=== PATIENT | female | born 1970 | race Caucasian/White ===

== ENCOUNTER → 2018-05-31 15:42 | Outpatient (CLI) | payer BC, SELFPAY ==
--- NOTE | 2018-05-31 15:46 | MM_ITS ---
MM Dig screening mamm BI w/CAD ORDERING PHYSICIAN : Jameel Talavera PATIENT AGE: 48 years GENDER: Female COMPARISON: January 2016, December 2013 INDICATION: ITS.REASON: screening no hormones no new complaints Family history. Sister with breast cancer age 35 and mother age 40 TECHNIQUE: Standard CC and MLO images were obtained. R2 CAD reviewed. FINDINGS: Moderate dense residual fibroglandular elements bilaterally with no new dominant mass or suspicious calcifications. Prior films are quite helpful and support stable appearance with overall architecture. No new areas of significant concern. I would note that mammography is of decreased sensitivity in breast of this character and density. I see no new areas of significant concern but it may palpable areas arise low threshold for ultrasound of the useful compliment/augment mammography in breast of this character.. With the strong family history this patient may benefit from the slightly more sensitive mammography tomosynthesis in follow-up . IMPRESSION: Fairly dense heterogeneous breast pattern bilaterally. Mammography is of decreased sensitivity in breast of this character but no new areas of concern. Bilateral follow-up in one year recommended. Self breast examination would be encouraged Note comments in text BI-RADS Category: 2 Benign Finding(s) RECOMMENDED FOLLOW-UP: 1YR 1 YEAR FOLLOW-UP (A letter has been sent to the patient regarding results of the study.)
== END ==
PROVIDERS: PCP Nurse Practitioner Family; Visit Provider Nurse Practitioner Family
DX: Z12.31 Encounter for screening mammogram for malignant neoplasm of breast (principal)
CPT/HCPCS: 77067

== ENCOUNTER → 2019-01-17 16:53 | Outpatient (CLI) | payer BC, SELFPAY ==
[2019-01-17 17:10] LABS: Basophils % 0.2 % (0.1-2.0); Eosinophils % 0.3 % (0.1-12.0); Hematocrit 40.1 % (37.0-47.0); Hemoglobin 13.6 g/dL (12.2-16.2); Lymphocytes % 10.3 % (10-50); Mean Corpuscular HGB Conc 33.8 g/dL (31.8-35.4); Mean Corpuscular Hemoglobin 28.7 pg (27.0-31.2); Mean Corpuscular Volume 85.1 fl (81-99); Mean Platelet Volume 7.7 fl (7.4-10.4); Monocytes # 0.5 K/mm3 (0.1-1.0); Monocytes % 4.9 % (1.7-9.3); Neutrophils % 84.4 % (37.0-80.0); Platelet Count 228 K/mm3 (142-424); Red Blood Count 4.72 M/mm3 (4.20-5.40); Red Cell Distribution Width 13.2 % (11.5-17.5); White Blood Count 9.4 K/mm3 (4.8-10.8)
--- NOTE | 2019-01-17 17:25 | XR_ITS ---
XR chest 2V HISTORY: Shortness of air ITS.REASON: soa ORDERING PHYSICIAN: Jameel Talavera APRN PATIENT AGE: 48 years COMPARISON: None FINDINGS: The cardiomediastinal silhouette and pulmonary vascularity are within normal limits. The lungs are clear without infiltrates, suspicious nodules, or pleural effusions. No acute bony abnormalities. IMPRESSION: Negative chest, no acute finding
[2019-01-17 17:59] LABS: Erythrocyte Sedimentation Rate 53 mm/hr (0-20)
[2019-01-17 18:32] LABS: Alanine Aminotransferase 30 U/L (12-78); Albumin/Globulin Ratio 1.3 (1.1-1.8); Alkaline Phosphatase 120 U/L (46-116); Anion Gap 16.5 mEq/L (5-15); Aspartate Amino Transferase 20 U/L (15-37); Bilirubin,Total 1.2 mg/dL (0.2-1.0); Blood Urea Nitrogen 13 mg/dL (7-18); C-Reactive Protein 1.4 mg/L (0.0-0.9); Calcium 9.8 mg/dL (8.5-10.1); Carbon Dioxide 25 mmol/L (21.0-32.0); Chloride 104 mmol/L (98-107); Creatinine,Serum 0.81 mg/dL (0.55-1.02); Estimated Glomerular Filt Rate 75 ml/min (>60); GFR (African American) 91 ML/MIN (>60); Globulin 3.1 gm/dl (1.3-3.2); Glucose 93 mg/dL (74-106); Potassium 4.5 mmoL/L (3.5-5.1); Sodium 141 mmol/L (136-145); T4 (Thyroxine) 8.5 ug/dl (4.7-13.3); Thyroid Stimulating Hormone 2.01 uIU/ml (0.358-3.740); Total Protein,Serum 7.1 gm/dL (6.4-8.2)
[2019-01-18 15:23] LABS: Creatine Kinase 128 U/L (26-192); Creatine Kinase MB 1.3 ng/ml (0.0-3.6); Troponin I < 0.02 ng/ml (0.00-0.06)
== END ==
PROVIDERS: PCP Emergency Medicine; Visit Provider Nurse Practitioner Family
DX: R42 Dizziness and giddiness (principal); R51 Headache; R06.02 Shortness of breath
CPT/HCPCS: 36415; 71046; 80053; 82550; 82553; 84436; 84443; 84484; 85025; 85651; 86140

== ENCOUNTER → 2019-01-24 10:40 | Outpatient (CLI) | payer BC, SELFPAY ==
--- NOTE | 2019-01-24 10:43 | US_ITS ---
US thyroid HISTORY: ITS.REASON: enlarged thyroid ORDERING PHYSICIAN: Jameel Talavera APRN PATIENT AGE: 48 years Comparison: None FINDINGS: AP diameter of the isthmus is 1.5 mm. Right lobe measures 1.1 x 3.3 x 1.0 cm. Left lobe measures 1.2 x 3.4 x 0.9 cm. The echogenic appearance of the thyroid gland appears normal. Upper pole left thyroid lobe shows a round smoothly marginated primarily anechoic lesion measuring 5.5 x 3.5 x 5.1 mm. Within this lesion there is a central punctate nonshadowing echogenic focus. There are no other nodules identified. Impression: No enlargement of the thyroid gland. Left thyroid lobe solitary small lesion as discussed above, TI-rad category 1 benign.
== END ==
PROVIDERS: PCP Emergency Medicine; Visit Provider Nurse Practitioner Family
DX: E04.9 Nontoxic goiter, unspecified (principal)
CPT/HCPCS: 76536

== ENCOUNTER → 2019-02-06 13:17 | Outpatient (CLI) | payer BC, SELFPAY ==
--- NOTE | 2019-02-06 13:19 | CT_ITS ---
CT head/brain wo con HISTORY: Lightheaded, dizziness, nausea ITS.REASON: lighthead ORDERING PHYSICIAN: Jameel Talavera APRN PATIENT AGE: 48 years COMPARISON: None TECHNIQUE: Axial images were obtained. Brain and bone windows reviewed. All CT scans at the facility use one or more dose reduction, viz: automated exposure control, ma/kV adjustment per patient size (including targeted exams where dose is matched to indication, i.e. head), or iterative reconstruction technique. FINDINGS: No midline shift, mass effect, intracranial hemorrhage, hydrocephalus, or extra-axial fluid collection is evident. The calvarium has an unremarkable appearance. No mastoid effusion. No sinus air-fluid levels.. IMPRESSION: Negative CT head without contrast. No acute finding
== END ==
PROVIDERS: PCP Emergency Medicine; Visit Provider Nurse Practitioner Family
DX: R42 Dizziness and giddiness (principal); R51 Headache
CPT/HCPCS: 70450

== ENCOUNTER → 2019-02-27 10:42 | Outpatient (CLI) | payer BC, SELFPAY ==
[2019-02-28 08:13] LABS: Thyroid Peroxidase Antibodies 12 IU/mL (0-34)
[2019-02-28 12:31] LABS: Thyroid Stimulating Hormone 1.72 uIU/ml (0.358-3.740)
[2019-02-28 14:22] LABS: Triiodothyronine (T3) Free 3.3 pg/mL (2.0-4.4)
== END ==
PROVIDERS: Visit Provider Internal Medicine Endocrinology, Diabetes & Metabolism
DX: E04.1 Nontoxic single thyroid nodule (principal); R94.6 Abnormal results of thyroid function studies
CPT/HCPCS: 36415; 84436; 84439; 84443; 84480; 84481; 86376

== ENCOUNTER → 2019-05-02 06:14 | Outpatient (CLI) | payer BC, SELFPAY ==
--- NOTE | 2019-05-02 06:16 | CA_ITS ---
APPROVED REPORT Curber: SAMARA Laterality: Bilateral Study Quality: Excellent Indications: due f/u ANATOLIY Doppler Spectral Velocity Analysis ECA (R) 94.80/17.90 cm/s ECA (L) 74.80/15.00 cm/s dICA (R) 112.70/48.20 cm/s dICA (L) 118.20/46.40 cm/s Walker (R) 100.20/36.60 cm/s Walker (L) 116.00/45.60 cm/s pICA (R) 129.10/33.70 cm/s pICA (L) 75.90/31.50 cm/s Vert (R) 51.20/14.10 cm/s Vert (L) 53.10/14.20 cm/s ICA/CCA 1.39 ICA/CCA 1.27 Findings Duplex evaluation demonstrates stenosis of the right proximal internal carotid artery <20% with PSV <140 cm/sec, EDV <100 cm/sec, and IC/CC Ratio <4.0.Duplex evaluation demonstrates stenosis of the left proximal internal carotid artery in the range of 20-49%(LOWER END OF SCALE) with PSV <140 cm/sec, EDV <100 cm/sec, and IC/CC Ratio <4.0.Antegrade flow seen bilateral vertebral arteries. No significant change from prior exam of 06/02/2016 Conclusion Duplex evaluation demonstrates stenosis of the right proximal internal carotid artery <20% with PSV <140 cm/sec, EDV <100 cm/sec, and IC/CC Ratio <4.0.Duplex evaluation demonstrates stenosis of the left proximal internal carotid artery in the range of 20-49%(LOWER END OF SCALE) with PSV <140 cm/sec, EDV <100 cm/sec, and IC/CC Ratio <4.0.Antegrade flow seen bilateral vertebral arteries. No significant change from prior exam of 06/02/2016 Electronically signed by : Ronnell Moreno MD 05/02/2019 18:08:54
--- NOTE | 2019-05-02 06:19 | CA_ITS ---
APPROVED REPORT Exam: Exercise Treadmill Technologist: Vera Figueroa, Ht: 5 ft 9 in Wt: 143 lbs BSA: 1.79 m2 HR: 55 bpm BP: 142/71 mmHg Rhythm: NSR Medical History Medical History: Hyperlipidemia Medications: Asa,,,,, Atorvastatin,,,,, Allergies: NKA Cardiac Risk Factors: Hyperlipidemia Stress Test Details Test: Frederick HR Resting HR: 80 bpm Max Heart Rate (APMHR): 169 bpm Max HR Achieved: 160 bpm Target HR (85% APMHR): 143 bpm % of APMHR: 94 Recovery HR: 111 bpm BP Resting BP: 142.0/71.0 mmHg Max BP: 178.0/74.0 mmHg Recovery BP: 161.0/60.0 mmHg ECG Resting ECG: NSR Clinical Reason for Termination: Dyspnea Exercise duration: 10:01 min Highest Stage Achieved: Exercise capacity: 12.8 METs Stress ECG Conclusion EXERCISED 10:00 MINUTES WITH MAX HEART RATE 160 BPM WHICH IS 111% OF PM FOR AGE. 12.8 METS. TEST STOPPED DUE TO SOA. NO CHEST PAIN. POSITIVE FOR SOA. NO ARRHYTHMIAS/ECTOPY. <1.[address] SEGMENT CHANGES. NEGATIVE TEST Test Summary Stage 4 . . . . . . . . REST . . . . . . . Sitting REST 07:44 0.0 0.0 80 . 142/ 71 . . Stage 1 01:00 10.0 1.7 91 . . . . Stage 1 02:00 10.0 1.7 92 . . . . Stage 1 03:00 10.0 1.7 104 . 148/ 72 . . Stage 2 01:00 12.0 2.5 94 . . . . Stage 2 02:00 12.0 2.5 98 . . . . Stage 2 03:00 12.0 2.5 107 . 154/ 72 . . Stage 3 01:00 14.0 3.4 124 . . . . Stage 3 02:00 14.0 3.4 129 . . . . Stage 3 03:00 14.0 3.4 140 . 178/ 74 . . Stage 4 . . . . . . . Cardiolite injected Stage 4 01:00 16.0 4.2 159 . . . . Stage 4 01:01 16.0 4.2 159 . . . Stop exercise at 10:01 RECOVERY 01:00 0.0 0.0 135 . . . . RECOVERY 02:00 0.0 0.0 111 . . . . RECOVERY 03:00 0.0 0.0 92 . 161/ 60 . . RECOVERY 04:00 0.0 0.0 87 . 161/ 60 . . RECOVERY 05:00 0.0 0.0 79 . 161/ 60 . . RECOVERY 06:00 0.0 0.0 86 . 108/ 56 . . RECOVERY 06:19 0.0 0.0 83 . 108/ 56 . . Electronically signed by : Oren Smiley, 05/02/2019 14:38:42
--- NOTE | 2019-05-02 06:19 | NM_ITS ---
APPROVED REPORT Exam: Nuclear Stress Test Indication: C.Joselyn., GLADYS, ZEINA COPE Patient Location: Outpatient Stress Tech: Kari Figueroa [place] Tech:Gege GipsonDARIA RT(R)(N) Ht: 5 ft 9 in Wt: 143 lbs Bra Size: 36dd HR: 55 bpm BP: 142/71 mmHg BSA: 1.79 m2 BMI: 21.1 History: Mariia.Joselyn., GLADYS, ANATOLIY, ZEINA Procedure: Patient exercised on Frederick protocol 10:00 minutes and sec, resting heart rate 55 bpm, resting blood pressure 142/71 mmHg, with exercise maximum heart rate achived was 136 bpm which is % of the maximum predicted heart rate and blood pressure was 178/74 mmHg. Patient denied any complaint of chest pain. Cardiac Stress and Resting SPECT Images: Cardiac Stress and Resting SPECT images were obtained using technetium 99m Myoview 31.0 mCi stress and 10.93 mCi at rest. EF is normal at 65% with no wall motion abnormalities There is decrease activity in the kenyetta septal region on the stress images which somewhat improves on the rest images suggesting ischemic changes. No fixed defects Conclusion: EF is normal at 65% with no wall motion abnormalities There is decrease activity in the kenyetta septal region on the stress images which somewhat improves on the rest images suggesting ischemic changes. underlying breast attenuation artifact is also a possibility No fixed defects Electronically signed by : Ronnell Moreno MD 05/02/2019 17:47:14
--- NOTE | 2019-05-02 09:08 | HMH.ITSHM ---
Current Home Medications as stated by this patient Sav Sanchez or sales representative advertising. [] atorvastatin asa
[2019-05-02 10:50] LABS: Basophils % 0.4 % (0.1-2.0); Hemoglobin 12.4 g/dL (12.2-16.2); Lymphocytes # 1.3 K/mm3 (0.7-4.5); Lymphocytes % 31.9 % (10-50); Mean Corpuscular HGB Conc 32.8 g/dL (31.8-35.4); Mean Corpuscular Hemoglobin 31.1 pg (27.0-31.2); Mean Corpuscular Volume 94.9 fl (81-99); Mean Platelet Volume 9.1 fl (7.4-10.4); Monocytes # 0.2 K/mm3 (0.1-1.0); Monocytes % 5.1 % (1.7-9.3); Neutrophils # 2.5 K/mm3 (1.8-7.8); Neutrophils % 61.6 % (37.0-80.0); Platelet Count 178 K/mm3 (142-424); Red Cell Distribution Width 13.1 % (11.5-17.5)
[2019-05-02 11:38] LABS: Erythrocyte Sedimentation Rate 40 mm/hr (0-30)
[2019-05-02 11:46] LABS: Alanine Aminotransferase 34 U/L (12-78); Albumin Level 3.4 gm/dL (3.4-5.0); Albumin/Globulin Ratio 1.4 (1.1-1.8); Alkaline Phosphatase 95 U/L (46-116); Aspartate Amino Transferase 29 U/L (15-37); Bilirubin,Total 0.6 mg/dL (0.2-1.0); Blood Urea Nitrogen 9 mg/dL (7-18); C-Reactive Protein 0.3 mg/dL (0.0-0.9); Calcium 8.8 mg/dL (8.5-10.1); Carbon Dioxide 29 mmol/L (21.0-32.0); Chloride 107 mmol/L (98-107); Creatinine,Serum 0.56 mg/dL (0.55-1.02); Estimated Glomerular Filt Rate 114 ml/min (>60); GFR (African American) 138 ML/MIN (>60); Globulin 2.5 gm/dl (1.3-3.2); Glucose 89 mg/dL (74-106); Sodium 140 mmol/L (136-145); Total Protein,Serum 5.9 gm/dL (6.4-8.2); Uric Acid 3.2 mg/dL (2.6-7.2)
[2019-05-03 18:51] LABS: RA Latex Turbid. 11.2 IU/mL (0.0-13.9)
[2019-05-03 18:52] LABS: Antinuclear Antibodies, IFA Negative (.)
== END ==
PROVIDERS: Nurse Practitioner Family; PCP Emergency Medicine; Visit Provider Urology
DX: R07.9 Chest pain, unspecified (principal); R06.02 Shortness of breath; I65.23 Occlusion and stenosis of bilateral carotid arteries; R94.31 Abnormal electrocardiogram [ECG] [EKG]
CPT/HCPCS: 36415; 78452; 80053; 84550; 85025; 85651; 86038; 86140; 86431; 93017; 93306; 93880; A9502

== ENCOUNTER → 2019-05-02 10:28 | Outpatient (CLI) | payer BC, SELFPAY | PROVIDERS: Visit Provider Nurse Practitioner Family | DX: R07.9 Chest pain, unspecified (principal); R06.09 Other forms of dyspnea; R94.31 Abnormal electrocardiogram [ECG] [EKG] | CPT/HCPCS: 36415; 80053; 84550; 85025; 85651; 86038; 86140; 86431 ==

== ENCOUNTER → 2019-06-12 07:37 | Outpatient (CLI) | payer BC, SELFPAY ==
[2019-06-12 07:39] LABS: MANUAL DIFFERENTIAL MANUAL DIFFERENTIAL (MANUAL DIFF)
[2019-06-12 07:55] LABS: Basophils % 0.2 % (0.1-2.0); Eosinophils # 0.1 K/mm3 (0.0-0.4); Eosinophils % 1.2 % (0.1-12.0); Hematocrit 41.1 % (37.0-47.0); Hemoglobin 13.2 g/dL (12.2-16.2); Lymphocytes # 1.4 K/mm3 (0.7-4.5); Lymphocytes % 26.2 % (10-50); Mean Corpuscular HGB Conc 32.2 g/dL (31.8-35.4); Mean Corpuscular Hemoglobin 30.6 pg (27.0-31.2); Monocytes # 0.3 K/mm3 (0.1-1.0); Monocytes % 5.4 % (1.7-9.3); Neutrophils # 3.5 K/mm3 (1.8-7.8); Platelet Count 189 K/mm3 (142-424); Red Blood Count 4.32 M/mm3 (4.20-5.40); Red Cell Distribution Width 13.6 % (11.5-17.5); White Blood Count 5.3 K/mm3 (4.8-10.8)
[2019-06-12 09:16] LABS: Lymphocytes % 24 % (10-50); Monocytes % 10 % (2-9); Neutrophils % 65 % (42-76); Platelet Estimate Slight Decrease; RBC Morphology Normal; Total Cells Counted 100
[2019-06-12 11:11] LABS: Erythrocyte Sedimentation Rate 20 mm/hr (0-30)
== END ==
PROVIDERS: Visit Provider Nurse Practitioner Family
DX: D72.819 Decreased white blood cell count, unspecified (principal); R70.0 Elevated erythrocyte sedimentation rate
CPT/HCPCS: 36415; 85007; 85014; 85018; 85048; 85049; 85651

== ENCOUNTER → 2019-07-26 09:08 | Outpatient (CLI) | payer BC, SELFPAY ==
[2019-07-26 10:27] LABS: Glucose,Fasting 86 mg/dL (60-105)
[2019-07-26 10:46] LABS: Glucose 1 Hour 62 mg/dL (74-106)
[2019-07-26 10:48] LABS: Hemoglobin A1C 5.4 % (0.0-7.0)
[2019-07-26 12:57] LABS: Glucose 2 Hour 58 mg/dL (74-106); Glucose 3 Hour 53 mg/dL (74-106)
== END ==
PROVIDERS: Visit Provider Nurse Practitioner Family
DX: E16.2 Hypoglycemia, unspecified (principal)
CPT/HCPCS: 36415; 82951; 83036

== ENCOUNTER → 2019-08-05 16:15 | Outpatient (CLI) | payer BC, SELFPAY ==
--- NOTE | 2019-08-05 16:15 | MM_ITS ---
PROCEDURE: MM DIG SCREENING MAMM BI W/CAD CLINICAL INDICATION: screening There is a history of breast cancer patient's mother diagnosed at age 40 and the patient's sister diagnosed at age 35. COMPARISON: [facility] DIG MAMM-SCREEN ANTONINO from 02/18/2016 [facility] DIG MAMM-SCREEN [facility]INO W/CAD from 03/26/2017 [facility] MM Dig screening mamm BI w/CAD from 05/31/2018 TECHNIQUE: Standard CC and MLO images and 3D Tomosynthesis was obtained. R2 CAD reviewed. FINDINGS: Again noted is a diffusely dense and heterogenic parenchymal pattern lessening the sensitivity of mammography. The findings are fairly symmetrical bilaterally. Tomosynthesis images are most helpful and this type of breast parenchymal pattern confirming the rather dense and heterogenic fibroglandular densities. There are few scattered benign-appearing microcalcifications in each breast. Angel Luis images confirm no new or suspicious lesion in either breast and no suspicious microcalcifications. IMPRESSION: Stable diffusely dense parenchymal pattern with no suspicious lesions seen BI-RAD Category: 2 Benign Finding(s) FOLLOW-UP: 1YR 1 Year Follow-up (A letter has been sent to the patient regarding results of the study.) Dictated by: Dr. Kem Montelongo MD 08/07/2019 10:[address] Kem Montelongo MD in [place] 08/07/2019 10:05
== END ==
PROVIDERS: PCP Nurse Practitioner Family; Visit Provider Nurse Practitioner Family
DX: Z12.31 Encounter for screening mammogram for malignant neoplasm of breast (principal)
CPT/HCPCS: 77063; 77067

== ENCOUNTER → 2019-08-20 09:16 | Outpatient (CLI) | payer BC, SELFPAY ==
[2019-08-20 11:46] LABS: Free T4 (Free Thyroxine) 0.78 ng/dl (0.78-2.19)
[2019-08-20 12:00] LABS: Thyroid Stimulating Hormone 2.32 uIU/mL (0.465-4.68)
[2019-08-22 10:34] LABS: Estradiol 54.6 pg/mL (.); FSH 46.3 mIU/mL (.); LH 65.4 mIU/mL (.)
[2019-08-22 10:35] LABS: Triiodothyronine (T3) Free 2.7 pg/mL (2.0-4.4)
== END ==
PROVIDERS: Internal Medicine Endocrinology, Diabetes & Metabolism; Visit Provider Nurse Practitioner Obstetrics & Gynecology
DX: N95.1 Menopausal and female climacteric states (principal); E04.1 Nontoxic single thyroid nodule; R94.6 Abnormal results of thyroid function studies
CPT/HCPCS: 36415; 82670; 83001; 83002; 84439; 84443; 84481

== ENCOUNTER → 2019-11-25 10:53 | Outpatient (CLI) | payer BC, SELFPAY ==
--- NOTE | 2019-11-25 10:54 | CT_ITS ---
PROCEDURE: CT SINUS WO CON CLINICAL HISTORY: maxillary sinusitits Recurring infection, COMPARISON: No exams were available for comparison TECHNIQUE: Axial images obtained with sagittal and coronal reformats. All CT scans at the facility use one or more dose reduction, viz: automated exposure control, ma/kV adjustment per patient size (including targeted exams where dose is matched to indication, i.e. head), or iterative reconstruction technique. FINDINGS: No air-fluid levels are evident within the sinuses. No significant mucosal. The mastoid sinuses an appearance. The middle ears aerated. There is leftward nasal septal deviation anteriorly. The ostiomeatal complexes are patent. TMJs have an unremarkable. Orbits are unremarkable. IMPRESSION: Negative CT paranasal sinuses. Mild leftward nasal septal deviation Dictated by: Ronnell Moreno MD 11/26/2019 13:23 Electronically signed by Ronnell Moreno MD in [place] 11/26/2019 13:23
== END ==
PROVIDERS: PCP Nurse Practitioner Family; Visit Provider Otolaryngology
DX: J01.01 Acute recurrent maxillary sinusitis (principal); J34.2 Deviated nasal septum
CPT/HCPCS: 70486

== ENCOUNTER → 2021-01-14 11:41 | Outpatient (CLI) | payer BC, SELFPAY ==
--- NOTE | 2021-01-14 11:45 | XR_ITS ---
PROCEDURE: XR HIP RT 2-3V W/PELVIS CLINICAL INDICATION: pain Right hip pain COMPARISON: CR PELAP PELVIS AP ONLY from 09/08/2013 FINDINGS: No fracture or dislocation is evident. No significant degenerative change. No lytic or blastic change. Unremarkable soft tissues. IMPRESSION: No acute findings. Dictated by: Ronnell Moreno MD 01/14/2021 11:59 Ronnell Moreno MD in [place] 01/14/2021 11:59
== END ==
PROVIDERS: PCP Nurse Practitioner Family; Visit Provider Nurse Practitioner Family
DX: M25.551 Pain in right hip (principal)
CPT/HCPCS: 73502

== ENCOUNTER → 2021-02-15 19:37 | Outpatient (CLI) | payer BC, SELFPAY ==
[2021-02-15 21:27] LABS: Coronavirus 19, PCR Not Detected (NotDetected); Influenza A, PCR Not Detected (NotDetected); Influenza B, PCR Not Detected (NotDetected)
== END ==
PROVIDERS: PCP Nurse Practitioner Family; Visit Provider Nurse Practitioner
DX: Z20.822 Contact with and (suspected) exposure to COVID-19 (principal)
CPT/HCPCS: U0003

== ENCOUNTER → 2021-02-20 11:47 | Outpatient (CLI) | payer BC, SELFPAY ==
--- NOTE | 2021-02-20 17:06 | PC.NURSE ---
PATIENT NOTIFIED OF POSITIVE COVID TEST AT THIS TIME
== END ==
PROVIDERS: PCP Nurse Practitioner Family; Visit Provider Nurse Practitioner Family
DX: Z20.822 Contact with and (suspected) exposure to COVID-19 (principal)
CPT/HCPCS: U0003

== ENCOUNTER → 2021-07-13 14:51 | Outpatient (CLI) | payer BC, SELFPAY ==
[2021-07-13 14:53] LABS: MANUAL DIFFERENTIAL MANUAL DIFFERENTIAL (MANUAL DIFF)
[2021-07-13 15:18] LABS: Basophils # 0.1 K/mm3 (0-0.2); Basophils % 2.9 % (0.1-2.0); Eosinophils % 0.2 % (0.1-12.0); Hematocrit 45.3 % (37.0-47.0); Hemoglobin 15.3 g/dL (12.2-16.2); Lymphocytes # 0.4 K/mm3 (0.7-4.5); Lymphocytes % 10.6 % (10-50); Mean Corpuscular HGB Conc 33.7 g/dL (31.8-35.4); Mean Corpuscular Hemoglobin 31.8 pg (27.0-31.2); Mean Corpuscular Volume 94.2 fl (81-99); Mean Platelet Volume 7.9 fl (7.4-10.4); Monocytes # 0.2 K/mm3 (0.1-1.0); Monocytes % 5.3 % (1.7-9.3); Neutrophils # 2.9 K/mm3 (1.8-7.8); Neutrophils % 81.1 % (37.0-80.0); Platelet Count 140 K/mm3 (142-424); Red Blood Count 4.81 M/mm3 (4.20-5.40); Red Cell Distribution Width 13.1 % (11.5-17.5); White Blood Count 3.5 K/mm3 (4.8-10.8)
[2021-07-13 15:37] LABS: Lymphocytes % 16 % (10-50); Monocytes % 8 % (2-9); Neutrophils % 76 % (42-76); Platelet Estimate Normal; RBC Morphology Normal; Total Cells Counted 100
[2021-07-13 15:43] LABS: Erythrocyte Sedimentation Rate 15 mm/hr (0-30)
[2021-07-13 16:03] LABS: Alanine Aminotransferase 31 U/L (12-78); Albumin Level 4.3 g/dl (3.5-5.0); Albumin/Globulin Ratio 1.9 (1.1-1.8); Alkaline Phosphatase 103 U/L (38-126); Anion Gap 10.2 mEq/L (5-15); Aspartate Amino Transferase 47 U/L (14-36); Bilirubin,Total 0.7 mg/dl (0.2-1.3); Blood Urea Nitrogen 12 mg/dl (7-17); Calcium 8.8 mg/dl (8.4-10.2); Carbon Dioxide 27 mmol/L (22.0-30.0); Chloride 100 mmol/L (98-107); Estimated Glomerular Filt Rate 88 ml/min (>60); GFR (African American) 106 ML/MIN (>60); Globulin 2.3 g/dL (1.3-3.2); Glucose 102 mg/dl (74-100); Potassium 4.2 mmoL/L (3.5-5.1); Sodium 133 mmol/L (136-145); Total Protein,Serum 6.6 g/dl (6.3-8.2)
[2021-07-13 16:20] LABS: Free T4 (Free Thyroxine) 0.52 ng/dl (0.78-2.19)
[2021-07-13 16:33] LABS: Thyroid Stimulating Hormone 1.03 uIU/mL (0.465-4.68)
[2021-07-15 15:06] LABS: Anti-Centromere B Antibodies <0.2 AI (0.0-0.9); Anti-DNA (DS) Ab Qn 1 IU/mL (0-9); Anti-Jo-1 <0.2 AI (0.0-0.9); Anti-Smith Antibody <0.2 AI (0.0-0.9); Antichromatin Antibodies <0.2 AI (0.0-0.9); Antiscleroderma-70 Antibodies <0.2 AI (0.0-0.9); RNP Antibodies <0.2 AI (0.0-0.9); Sjogren's Anti-SS-A <0.2 AI (0.0-0.9); Sjogren's Anti-SS-B <0.2 AI (0.0-0.9)
== END ==
PROVIDERS: PCP Nurse Practitioner Family; Visit Provider Otolaryngology
DX: E04.1 Nontoxic single thyroid nodule (principal); H92.02 Otalgia, left ear
CPT/HCPCS: 36415; 80053; 84439; 84443; 85007; 85014; 85018; 85048; 85049; 85651; 86225; 86235

== ENCOUNTER → 2021-07-22 10:53 | Outpatient (CLI) | payer BC, SELFPAY ==
--- NOTE | 2021-07-22 10:54 | US_ITS ---
FINAL REPORT CLINICAL HISTORY: hx nodule FINDINGS: Sonographic images of the thyroid were obtained. The right lobe of the thyroid measures 0.9 x 3.0 x 1.7 cm. Left lobe of the thyroid measures 0.8 x 2.8 x 0.9 cm. There is a 2 mm cystic nodule in the upper pole of the right thyroid consistent with TI-RADS Category 1. No other mass or nodule is identified. IMPRESSION: Right thyroid lobe nodule consistent with TI-RADS Category 1. Reviewed, Interpreted and Dictated by Gabriel Bridges III, MD Transcribed by Sarina Vanegas Authenticated by Gabriel Bridges III, MD on 07/22/2021 12:32:35 PM [facility]
== END ==
PROVIDERS: PCP Nurse Practitioner Family; Visit Provider Otolaryngology
DX: E04.1 Nontoxic single thyroid nodule (principal); H92.02 Otalgia, left ear
CPT/HCPCS: 76536

== ENCOUNTER → 2021-11-03 08:00 | Outpatient (CLI) | payer BC, SELFPAY ==
--- NOTE | 2021-11-03 08:04 | XR_ITS ---
FINAL REPORT CLINICAL HISTORY: BACK PAIN THAT SHOOTS DOWN RIGHT LEG FINDINGS: LUMBAR SPINE Three views were obtained. There is no acute fracture. There is no malalignment. There is mild rightward curvature. There is [id number] degenerative change. There is disc space narrowing at L4-L5 with osteophytes. There is facet arthropathy. There are mild vascular calcifications. IMPRESSION: Mild to moderate degenerative change. Reviewed, Interpreted and Dictated by Gabriel Bridges III, MD Transcribed by Noah Olivia Authenticated by Gabriel Bridges III, MD on 11/03/2021 09:04:[address] [facility]
== END ==
PROVIDERS: PCP Nurse Practitioner Family; Visit Provider Nurse Practitioner Family
DX: M54.50 Low back pain, unspecified (principal)
CPT/HCPCS: 72100

== ENCOUNTER → 2021-11-09 08:10 | Outpatient (CLI) | payer BC, SELFPAY ==
--- NOTE | 2021-11-09 08:10 | MM_ITS ---
PROCEDURE INFORMATION: Exam: MG Bilateral Screening 3D Mammography Exam date and time: 11/09/2021 8:18 AM Age: 51 years old Clinical indication: Screening mammogram TECHNIQUE: Imaging protocol: Bilateral Screening tomosynthesis and 2D mammography including computer-aided detection (CAD) when performed. COMPARISON: 1. MG MM DIG SCREENING MAMM BI W/CAD 08/05/2019 4:38 PM 2. MG [facility] MM Dig screening mamm BI w/CAD 05/31/2018 3:55 PM 3. MG [facility] DIG MAMM-SCREEN ANTONINO W/CAD 03/26/2017 8:51 AM 4. MG [facility] DIG MAMM-SCREEN ANTONINO 02/18/2016 8:25 AM FINDINGS: MAMMOGRAPHY: Breast composition: The breast is heterogeneously dense, which may obscure small masses. Mass: None. Architectural distortion: No new or suspicious architectural distortion. Calcifications: No new or suspicious calcifications are present Asymmetric density: No new or suspicious asymmetric density is present Skin thickening: None. Axillary adenopathy: None. IMPRESSION: No mammographic evidence of malignancy. Recommend annual screening mammography unless otherwise clinically indicated. ASSESSMENT: BI-RADS category 1: Negative
== END ==
PROVIDERS: PCP Nurse Practitioner Family; Visit Provider Nurse Practitioner Family
DX: Z12.31 Encounter for screening mammogram for malignant neoplasm of breast (principal)
CPT/HCPCS: 77063; 77067

== ENCOUNTER → 2022-03-14 14:59 | Outpatient (CLI) | payer BC, SELFPAY ==
--- NOTE | 2022-03-14 15:01 | CA_ITS ---
APPROVED REPORT EXAM: Comprehensive 2D, Doppler, and color-flow Echocardiogram Office Employee: Gege Olvera CRT Ht: 5 ft 9 in Wt: 170lbs BSA: 1.93 BP: 155/71 mmHg Indications: Chest Pain, Shortness of Breath, Fatigue, Hyperlipidemia, bradycardia 2D Dimensions LVOT 1.88 cm (M/F) 1.5-2.5 LA Volume 24.50 mL LA Volume Index 12.70 mL/m2 (M/F) 16-34 M-Mode Dimensions RVDd 2.85 cm (0.9-2.6) LA Diam 2.74 cm (1.9-4.0) LVDd 4.29 cm (3.5-5.7) Ao Diam 3.12 cm (2.0-3.7) LVDs 2.69 cm (3.5-5.7) IVSd 0.75 cm (0.6-1.1) PWd 0.66 cm (0.6-1.1) EF (Teich) 67.60% FS 37.30% EDV (Teich) 82.60 mL TAPSE 2.65 (<1.7) ESV (Teich) 26.80 mL LV Diastology E Decel Time 273.00 (160-240 msec) E/A Ratio 1.13 MED E' 11.90 (< 7 cm/sec) MED A' 10.20 cm/s E'/MED E' Ratio 7.94 (>14) LAT E' 13.50 (<10 cm/sec) LAT A' 8.50 cm/s E/LAT E' Ratio 7.00 (>14) Aortic Valve AO Peak GR. 10.80 mmHg Mitral Valve MV A Velocity 84.00 (40-130 cm/s) E/A Ratio 1.13 MV Decel. Time 273.00 (160-240 ms) Tricuspid Valve TR P. Velocity 468.00 cm/s RAP Estimate 10.00 mmHg RVSP 97.60 mmHg Left Ventricle Left atrium is normal size, left ventricle is normal size, there is no concentric left ventricular hypertrophy, estimated ejection fraction 55% with no regional wall motion abnormality, diastolic parameters are within normal range. Right Ventricle Right atrium and right ventricle are normal size and contractility. Aortic Valve Aortic valve is minimally thickened and fibrosed there is no aortic stenosis or aortic insufficiency. Mitral Valve Mitral valve is grossly normal, there is trace mitral regurgitation. Tricuspid Valve Tricuspid valve is grossly normal, there is trace tricuspid regurgitation, calculated right ventricular systolic pressure 26 mmHg. Pulmonic Valve Pulmonic valve is poorly visualized. Great Vessels Aortic root is normal size. Inferior vena cava is normal size with normal inspiratory collapse. Pericardium No significant pericardial effusion noted. Conclusion 1. Normal left ventricular size preserved left ventricular systolic function, estimated ejection fraction 55% with no regional wall motion abnormality, diastolic parameters are within normal range. 2. Trace mitral and tricuspid regurgitation, calculated right ventricular systolic pressure 26 mmHg. 3. No significant pericardial effusion. 4. Inferior vena cava is normal size with normal inspiratory collapse. Electronically signed by : Cb Terrazas MD 03/15/2022 05:13:06
== END ==
PROVIDERS: PCP Nurse Practitioner Family; Visit Provider Physician Assistant
DX: R06.09 Other forms of dyspnea (principal); R42 Dizziness and giddiness; R00.1 Bradycardia, unspecified; E78.2 Mixed hyperlipidemia; I65.23 Occlusion and stenosis of bilateral carotid arteries; K21.9 Gastro-esophageal reflux disease without esophagitis
CPT/HCPCS: 93306

== ENCOUNTER → 2022-03-20 10:24 | Outpatient (CLI) | payer BC, SELFPAY | PROVIDERS: PCP Nurse Practitioner Family; Visit Provider Physician Assistant | DX: R42 Dizziness and giddiness (principal); R00.1 Bradycardia, unspecified | CPT/HCPCS: 93270 ==

== ENCOUNTER → 2022-05-02 12:37 | Outpatient (CLI) | payer BC, SELFPAY ==
[2022-05-02 13:25] VITALS: PULSE 80; PULSE 88
== END ==
PROVIDERS: PCP Nurse Practitioner Family; Visit Provider Internal Medicine Pulmonary Disease
DX: R06.09 Other forms of dyspnea (principal)
CPT/HCPCS: 94060; 94618; 94640; 94726; 94729

== ENCOUNTER → 2022-06-29 12:56 | Outpatient (CLI) | payer BC, SELFPAY ==
--- NOTE | 2022-06-29 13:14 | XR_ITS ---
FINAL REPORT CLINICAL HISTORY: LOW BACK PAIN with left leg pain , numbness down to left knee FINDINGS: LUMBAR SPINE 5 views of the lumbar spine were obtained. There is no evidence of fracture or dislocation. The vertebral alignment is normal. There are mild and moderate degenerative changes. There is vacuum disc phenomenon at L4-5. No paraspinous soft tissue abnormalities identified. IMPRESSION: Mild and moderate degenerative changes with no acute bony abnormality. Reviewed, Interpreted and Dictated by Gabriel Bridges III, MD Transcribed by Jaquelin Aguialr Authenticated and . [facility]
== END ==
PROVIDERS: PCP Nurse Practitioner Family; Visit Provider Nurse Practitioner Family
DX: M54.50 Low back pain, unspecified (principal)
CPT/HCPCS: 72110

== ENCOUNTER → 2022-06-30 09:25 | Outpatient (CLI) | payer BC, SELFPAY ==
--- NOTE | 2022-06-30 09:30 | MR_ITS ---
FINAL REPORT CLINICAL HISTORY: LBP, no injury COMPARISON: June 2016 FINDINGS: Multiplanar MR imaging of the lumbar spine was performed without contrast. On the sagittal T2-weighted images, disc degeneration is seen at multiple levels. There is mild retrolisthesis of L3 on L4, L4 on L5, and L5 on S1. There are mild endplate changes at multiple levels. There is no evidence of fracture. The conus has an unremarkable appearance. There is no significant central canal stenosis. L1-2: No significant central canal stenosis or neural foraminal narrowing. L2-3: No significant central canal stenosis or neural foraminal narrowing L3-4: There is an annular bulge and facet arthropathy. There is mild bilateral neural foraminal narrowing. L4-5: There is an annular bulge, facet arthropathy and vertebral osteophytes. There is mild bilateral neural foraminal narrowing. L5-S1: There is an annular bulge and facet arthropathy. There is a small left paracentral disc protrusion, new. There is moderate right and mild left neural foraminal narrowing. IMPRESSION: Multilevel degenerative disc disease with areas of neural foraminal narrowing. Small left paracentral disc protrusion at L5-S1, new from prior. No significant central canal stenosis. Reviewed, Interpreted and Dictated by Gabriel Bridges III, MD Transcribed by Noah Olivia Authenticated and [facility]
== END ==
PROVIDERS: PCP Nurse Practitioner Family; Visit Provider Nurse Practitioner Family
DX: M54.50 Low back pain, unspecified (principal)
CPT/HCPCS: 72148; 76376

== ENCOUNTER → 2022-09-18 12:51 | Outpatient (POV) | payer BC, SELFPAY ==
[2022-09-18 13:14] VITALS: BP 145/70; PULSE 69; RESP 18; O2SAT 97; BMI 25.1
--- NOTE | 2022-09-18 13:55 | EXP.PAIN.OV ---
HPI Data of Consult Patient: new to practice Consult date: 09/18/22 Requesting Physician: Sarina Robb APRN Primary Care Provider: Jameel Talavera APRN Consult Narrative Reason for consult: Low back pain, intermittent leg pain History of present illness: Ms. Sanchez is a 52 year old female who presents today as a new patient. She is a referral from Dr. Mota. Today she rates her pain a 7 out of 10. Patient states her pain is all in her low back that has been going on for years. She states that in the past she did work for [employer] at the [employer] and that did require frequent lifting. She states she does believe this may have started some of her back related issues. She does describe this as a aching, throbbing, sharp sensations that are worse with increased activity or certain motions such as bending, twisting, lifting. She does state that occasionally she has intermittent symptoms radiating into her upper thighs and describes this as a aching, sharp sensation. She states that the sensations will run down to her knees and stop. Patient states she is only been dealing with those specific pains for the last 6 months. She does state that the right side is the worst side and that occasionally she will have numbness along the left. Patient has tried [id number] ibuprofen and states this did help initially however as time went on it was less effective. She did try a heating pad for temporary relief. Patient denies any previous surgeries or injections. She states she did have physical therapy years ago approximately in 2010 that she went for 4 weeks however this made her pain worse. Patient states she did also have a chiropractor consultation in the past and they recommended she use lumbar support devices. She states she does use these frequently including while riding in the car. She states that they do help and that she can notice significant difference when she is not use that. Patient does state that sitting is worse. She states she cannot tolerate standing longer than sitting. Patient does state it interferes with her ability to perform activities of daily living such as cooking and cleaning or even doing laundry. Patient states she frequently has to stop and take multiple breaks due to her pain symptoms. Dr. Mota did say she was a nonsurgical candidate and was recommending conservative therapy such as injections. Patient does state years ago she went to a pain clinic who did want to do injections however at that time she was not interested. Patient is not on any scheduled medications. Her Saurav is [phone]. Its been reviewed and appropriate. CC: Sarina Robb APRN [facility] Disclaimer: The information contained in this section may have been updated after the patient was seen, as this information can be updated by other users. Medical History Abnormal stress test Allergic rhinitis Angina, class IV Asthma Dyspnea Dyspnea on exertion GERD (gastroesophageal reflux disease) History of deviated nasal septum HLD (hyperlipidemia) Shortness of Breath Stopped smoking with greater than 20 pack year history Surgical History History of cardiac cath History of colonoscopy History of neck surgery History of tonsillectomy Family History Other No significant family history Social History (Updated 09/18/22 @ 13:15 by Marnie Maza RN) Smoking Status: Never smoker alcohol intake: never substance use type: denies use current occupational status: unemployed Travel in the last 8 weeks: None household members: spouse housing: house current occupational exposures/hazards: No caffeine: Yes Review of Systems Review of Systems Review of systems:: pertinent systems reviewed and negative unless documented below Review of systems (narrative): Review of Systems: General: No recent weight changes, no feve
== END ==
PROVIDERS: PCP Nurse Practitioner Family; Visit Provider Nurse Practitioner Family
DX: M51.16 Intervertebral disc disorders with radiculopathy, lumbar region (principal); M46.1 Sacroiliitis, not elsewhere classified; M47.26 Other spondylosis with radiculopathy, lumbar region; M43.10 Spondylolisthesis, site unspecified
CPT/HCPCS: 99202; G0463

== ENCOUNTER 2022-09-26 14:01 | Day surgery (SDC) | payer BC, SELFPAY ==
[2022-09-26 14:10] VITALS: BP 153/82; PULSE 65; RESP 18; TEMP 36.7; O2SAT 100; BMI 25.1
--- NOTE | 2022-09-26 14:23 | P.PCN_ITS ---
Procedure Date: 09/26/22 Time: 14:00 Anesthesiologist:: Immanuel Nash CRNA Complications:: None Pre-procedure Diagnosis:: Degenerative disc disease lumbar spine multilevels. Lumbar radiculopathy. Lumbar spondylosis. Multilevel lumbar facet arthropathy. Post-procedure Diagnosis:: Same. Indications for Procedure:: Very pleasant 52-year-old female comes our clinic today for medial branch blocks/facet block L4-5, L5-S1 bilaterally. We will be injecting local only. Insurance constraints require no steroid. Patient describes her low back pain as constant, dull, aching. Has difficulty with flexion and/or extension left and right rotation. She rates her pain 7/10 Procedure Details:: Informed consent was obtained and the risk and benefits of the procedure was explained to the patient. Patient was taken to the procedure room where n oninvasive monitors were placed, including noninvasive blood pressure cuff as well as pulse oximeter. The area over the lumbar spine was cleansed using chlorhexidine as a cleansing solution. I anesthetized the skin and subcutaneous tissues with 1% Lidocaine. I placed 22-gauge spinal needles into the facet joint/ medial branches of L4-L5, and L5-S1] bilaterally. Needle placement was confirmed with fluoroscopy. After confirmation of needle placement, each site was injected with 1 mL of 1% lidocaine and 0.25 % Marcaine. A total of 80 mg of depo medrol was used for bilateral medial branch blocks of L4-L5, and L5-S1] bilaterally. Patient tolerated the procedure without difficulty. There were no complications. Plan and Disposition:: Patient was discharged without incident.
[2022-09-26 14:26] VITALS: BP 127/50; PULSE 56; RESP 18; O2SAT 100
== END 2022-09-26 14:26 | disposition home or self-care (01) ==
PROVIDERS: PCP Nurse Practitioner Family; Visit Provider Nurse Anesthetist, Certified Registered
DX: M51.16 Intervertebral disc disorders with radiculopathy, lumbar region (principal); M47.896 Other spondylosis, lumbar region
CPT/HCPCS: 64493; 64494

== ENCOUNTER → 2022-11-28 16:09 | Outpatient (CLI) | payer BC, SELFPAY ==
--- NOTE | 2022-11-28 16:12 | MM_ITS ---
PROCEDURE INFORMATION: Exam: MG Bilateral Screening 3D Mammography Exam date and time: 11/28/2022 4:12 PM Age: 52 years old Clinical indication: Screening examination. Her mother had breast cancer at age 40 and her sister had breast cancer at age 35. TECHNIQUE: Imaging protocol: Bilateral Screening tomosynthesis and 2D mammography including computer-aided detection (CAD) when performed. COMPARISON: 1. MG MM DIG SCREENING MAMM BI W/CAD 11/09/2021 8:18 AM 2. MG MM DIG SCREENING MAMM BI W/CAD 08/05/2019 4:38 PM 3. MG SCBI MM Dig screening mamm BI w/CAD 05/31/2018 3:55 PM 4. MG DMSB DIG MAMM-SCREEN ANTONINO W/CAD 03/26/2017 8:51 AM 5. MG DMSB DIG MAMM-SCREEN ANTONINO 02/15/2015 10:02 AM 6. MG DMSB DIG MAMM-SCREEN ANTONINO 01/14/2014 8:37 AM 7. MG DMDB DIG MAMM-DX ANTONINO 12/18/2012 1:06 PM 8. MG DMDXUAVR DIG MAMM-DX UNIL ADD VIEWS-RT 06/19/2012 8:45 AM 9. MG DMSB DIGITAL MAMM-SCREEN BILATERAL 05/16/2011 12:29 PM 10. MG DMSB DIGITAL MAMM-SCREEN BILATERAL 04/26/2010 8:35 AM FINDINGS: MAMMOGRAPHY: Breast composition: The breasts are heterogeneously dense, which may obscure small masses. Mass: None. Architectural distortion: None. Calcifications: Questionable calcifications in the left upper outer quadrant middle 3rd. Asymmetric density: Questionable 1.0 cm asymmetry in the inner right breast, middle 3rd, CC projection. Skin thickening: None. Axillary adenopathy: None. IMPRESSION: Patient will be recalled for: Right diagnostic mammography with spot compression in the CC projection and full field lateral as well as sonography for further evaluation of questionable right asymmetry; Left diagnostic mammography with magnification views in CC projection and true lateral for further evaluation of questionable left breast calcifications. Given the reported risk factors coupled with the patient's breast density, a breast cancer risk assessment may prove useful for further evaluation. ASSESSMENT: BI-RADS Category 0: Incomplete- Need Additional Imaging Evaluation and/or Prior Mammograms for Comparison
== END ==
PROVIDERS: PCP Nurse Practitioner Family; Visit Provider Nurse Practitioner Family
DX: Z12.31 Encounter for screening mammogram for malignant neoplasm of breast (principal)
CPT/HCPCS: 77063; 77067

== ENCOUNTER → 2022-12-20 14:27 | Outpatient (CLI) | payer BC, SELFPAY ==
--- NOTE | 2022-12-20 14:33 | MM_ITS ---
PROCEDURE INFORMATION: Exam: US Right Breast, Complete MG Bilateral Diagnostic Breast Tomosynthesis Exam date and time: 12/20/2022 2:42 PM Age: 52 years old Clinical indication: Patient recalled on the basis of a screening mammogram for further evaluation; Bilateral breasts; RT breast density, and lt breast calcifications TECHNIQUE: Imaging protocol: Complete ultrasound of all four quadrants of the right breast and the retroareolar regions, including ultrasound of the axilla when performed. Bilateral Diagnostic tomosynthesis and 2D mammography including computer-aided detection (CAD) when performed. Unilateral or bilateral exam. COMPARISON: 1. MG MM DIG SCREENING MAMM BI W/CAD 11/28/2022 4:12 PM 2. MG MM DIG SCREENING MAMM BI W/CAD 11/09/2021 8:18 AM FINDINGS: MAMMOGRAPHY: Digital diagnostic magnification views of the middle third of the left upper outer quadrant demonstrate several groupings of punctate calcifications better seen in the craniocaudal projection. They do not definitively form a true cluster in 2 orthogonal projections. The calcifications are, in all likelihood, benign in etiology, reflecting focal fibrocystic change. Digital diagnostic spot compression views of the right breast and 90 degree lateral view of the right breast demonstrate normal overlapping fibroglandular structures without persistent mass or asymmetry identified. ULTRASOUND: Sonographic images of the right breast including the retroareolar region, all 4 quadrants and the axilla do not demonstrate any suspicious solid or cystic masses. 0.4 cm cyst in the right 9 o'clock periareolar region. No architectural distortion or acoustical shadowing. No skin thickening or axillary adenopathy. IMPRESSION: 1. Probably benign calcifications in the middle to posterior third of the left upper outer quadrant. A six-month follow-up diagnostic left mammogram with magnification views are recommended to ensure stability over time. 2. No focal suspicious findings in the right breast. ASSESSMENT: BI-RADS Category 3: Probably benign
== END ==
PROVIDERS: PCP Nurse Practitioner Family; Visit Provider Nurse Practitioner Family
DX: R92.8 Other abnormal and inconclusive findings on diagnostic imaging of breast (principal)
CPT/HCPCS: 76641; 77062; 77066; G0279

== ENCOUNTER → 2023-06-27 14:25 | Outpatient (CLI) | payer BC, SELFPAY ==
--- NOTE | 2023-06-27 14:31 | MM_ITS ---
PROCEDURE INFORMATION: Exam: MG Left Diagnostic Breast Tomosynthesis Exam date and time: 06/27/2023 2:32 PM Age: 53 years old Clinical indication: Short-term radiographic followup; Left breast; calcifications TECHNIQUE: Imaging protocol: Left Diagnostic tomosynthesis and 2D mammography including computer-aided detection (CAD) when performed. Unilateral or bilateral exam. COMPARISON: 1. MG MM DIG MAMM BI DX W/CAD 12/20/2022 2:42 PM 2. MG MM DIG SCREENING MAMM BI W/CAD 11/28/2022 4:12 PM FINDINGS: MAMMOGRAPHY: The breast is heterogeneously dense, which may obscure small masses. There is no stellate mass or architectural distortion to suggest malignancy. Magnification views of the left upper outer quadrant demonstrate a true cluster slightly variable calcifications confirmed in 2 orthogonal projections on the current study. The calcifications span 1.4 cm of breast tissue and are located in the posterior third of the left upper outer quadrant. Additional few punctate calcifications are otherwise scattered in the left upper outer quadrant. No skin thickening or axillary adenopathy. IMPRESSION: Cluster of indeterminate variable microcalcifications in the posterior left upper outer quadrant. Stereotactic core biopsy is recommended for further evaluation. ASSESSMENT: BI-RADS Category 4: Suspicious
== END ==
LOC: RAD 14:26
PROVIDERS: PCP Nurse Practitioner Family; Visit Provider Nurse Practitioner Family
DX: R92.1 Mammographic calcification found on diagnostic imaging of breast (principal)
CPT/HCPCS: 77061; 77065; G0279

== ENCOUNTER 2023-07-11 10:06 | Outpatient (CLI) | payer BC, SELFPAY ==
--- NOTE | 2023-07-11 10:14 | MM_ITS ---
FINAL REPORT CLINICAL HISTORY: . specimen FINDINGS: Specimen radiograph left breast History: Stereotactic biopsy left breast calcifications Findings: Multiple core specimens were radiographed which revealed calcifications of interest within multiple tissue specimens. IMPRESSION: Imaging confirms calcifications of interest contained within the core samples Authenticated and ERN
--- NOTE | 2023-07-11 10:14 | MM_ITS ---
FINAL REPORT CLINICAL HISTORY: .breast calcs FINDINGS: STEREOTACTIC GUIDED LEFT BREAST BIOPSY, CLIP PLACEMENT, SPECIMEN RADIOGRAPH AND POST BIOPSY MAMMOGRAM Indication: Suspicious calcifications Findings: The stereotactic guided breast biopsy procedure was explained in detail to the patient including potential risk and benefits. The patient voiced an understanding of the procedure, was given an opportunity to ask questions, after which informed consent was obtained. The patient was positioned upon the stereotactic unit in the upright position. The breast was prepped in the usual sterile fashion. Subcutaneous soft tissues were anesthetized with lidocaine with epinephrine. Subsequently, with intermittent stereotactic guidance, the stereotactic biopsy needle was advanced into the breast in the region of the mammographic abnormality corresponding to recent diagnostic mammogram. Multiple vacuum assisted core samples were obtained. Sampling was thought to be adequate and the biopsy clip marker was deployed in the region of biopsy. Additional imaging as detailed below was performed. Specimen radiograph: Calcifications confirmed adequate Post procedure routine CC and MLO view mammogram: Post biopsy changes. Biopsy marker clip noted to be in the appropriate location. Patient tolerated the procedure well. No immediate complications. IMPRESSION: 1. Technically successful stereotactic guided biopsy of left breast calcifications 2. Biopsy marker clip deployed 3. Post biopsy mammogram obtained as above Histopathology results reveal proliferative fibrocystic changes without atypical hyperplasia or carcinoma. Pathology is concordant with mammographic findings. Recommend 6 month mammographic follow-up as routine benign postbiopsy surveillance. Authenticated and ERN
--- NOTE | 2023-07-11 10:14 | MM_ITS ---
FINAL REPORT CLINICAL HISTORY: . clip placement FINDINGS: MAMMOGRAM LEFT TECHNIQUE: Standard digital 2-D views COMPARISON: Prebiopsy exam 11/28/2022 and 06/27/2023 DENSITY: There are scattered areas of fibroglandular density FINDINGS: Post biopsy marker clip is noted to be in satisfactory position in the upper outer quadrant. Postbiopsy changes are noted. Calcifications of interest are noted reduced. IMPRESSION: Biopsy marker clip in good position RECOMMENDATION: Given benign concordant findings on histopathology, short-term 6 month mammographic follow-up left breast is recommended as normal post benign biopsy surveillance Authenticated and ERN
[2023-07-11] MEDS: ALPRAZolam 0.5MG TABLET 0.5 MG PO (10:25)
[2023-07-11] MEDS: APAP/HYDROCODONE 325MG/7.5MG TAB 1 TAB PO (10:25)
[2023-07-11] MEDS: RAD-SODIUM CHLORIDE 0.9% 250ML BAG 100 ML IV (10:45)
[2023-07-11] MEDS: LIDOCAINE 1% W/EPI 1:100,000 20ML VIAL IJ (10:45)
== END 2023-07-11 23:59 ==
LOC: RAD 10:06
PROVIDERS: PCP Nurse Practitioner Family; Visit Provider Nurse Practitioner Family
DX: R92.8 Other abnormal and inconclusive findings on diagnostic imaging of breast (principal)
CPT/HCPCS: 19081; 76098; 77065

== ENCOUNTER 2023-09-20 09:32 | Outpatient (CLI) | payer BC, SELFPAY ==
[2023-09-20 10:27] LABS: Albumin Level 4.2 g/dl (3.5-5.0); Alkaline Phosphatase 97 U/L (38-126); Anion Gap 8.2 mEq/L (5-15); Bilirubin,Indirect 0.7 mg/dL (0.0-0.9); Bilirubin,Total 0.7 mg/dl (0.2-1.3); Bilirubin,Unconjugated 0.7 mg/dL (0.0-1.1); Blood Urea Nitrogen 20 mg/dl (7-17); Calcium 9.3 mg/dl (8.4-10.2); Carbon Dioxide 31 mmol/L (22.0-30.0); Chloride 107 mmol/L (98-107); Chol/HDL Ratio 2.8 (1-3.5); Cholesterol 195 mg/dl (140-200); Estimated Glomerular Filt Rate 74 ml/min (>60); GFR (African American) 90 ML/MIN (>60); Glucose 87 mg/dl (74-100); HDL Cholesterol 70 mg/dl (40-60); Potassium 4.2 mmoL/L (3.5-5.1); Sodium 142 mmol/L (136-145); Total Protein,Serum 6.4 g/dl (6.3-8.2); Triglycerides 73 mg/dl (30-150); VLDL Cholesterol 15 mg/dL (0-40)
[2023-09-20 10:37] LABS: Direct LDL Cholesterol 70.86 mg/dL (100-129)
[2023-09-20 10:42] LABS: Basophils % 0.5 % (0.1-2.0); Eosinophils # 0.1 K/mm3 (0.0-0.4); Eosinophils % 2.7 % (0.1-12.0); Hematocrit 43.4 % (37.0-47.0); Hemoglobin 14.3 g/dL (12.2-16.2); Lymphocytes # 0.9 K/mm3 (0.7-4.5); Lymphocytes % 19.3 % (10-50); Mean Corpuscular HGB Conc 32.9 g/dL (31.8-35.4); Mean Corpuscular Hemoglobin 32.3 pg (27.0-31.2); Mean Corpuscular Volume 98.2 fl (81-99); Mean Platelet Volume 8.1 fl (7.4-10.4); Monocytes # 0.4 K/mm3 (0.1-1.0); Monocytes % 7.1 % (1.7-9.3); Neutrophils # 3.4 K/mm3 (1.8-7.8); Neutrophils % 70.3 % (37.0-80.0); Platelet Count 157 K/mm3 (142-424); Red Blood Count 4.42 M/mm3 (4.20-5.40); Red Cell Distribution Width 13.3 % (11.5-17.5); White Blood Count 4.9 K/mm3 (4.8-10.8)
[2023-09-20 10:57] LABS: Thyroid Stimulating Hormone 1.88 uIU/mL (0.465-4.68)
[2023-09-20 11:48] LABS: Alanine Aminotransferase 31 U/L (12-78); Aspartate Amino Transferase 43 U/L (14-36)
== END 2023-09-20 23:59 ==
LOC: LAB 09:33
PROVIDERS: PCP Nurse Practitioner Family; Visit Provider Physician Assistant
DX: I11.9 Hypertensive heart disease without heart failure (principal); I65.23 Occlusion and stenosis of bilateral carotid arteries; R06.09 Other forms of dyspnea; K21.9 Gastro-esophageal reflux disease without esophagitis; R42 Dizziness and giddiness; E78.2 Mixed hyperlipidemia; Z79.899 Other long term (current) drug therapy; E11.9 Type 2 diabetes mellitus without complications; R06.00 Dyspnea, unspecified
CPT/HCPCS: 36415; 80048; 80061; 80076; 84439; 84443; 85025

== ENCOUNTER 2023-09-26 08:57 | Emergency (ER) | payer BC, SELFPAY ==
[2023-09-26 09:10] VITALS: BP 133/74; PULSE 73; RESP 18; TEMP 37; O2SAT 98; BMI 20.7
[2023-09-26 09:23] LABS: UTC Influenza A Antigen Negative (Negative)
[2023-09-26 09:24] LABS: UTC Influenza B Antigen Negative (Negative)
--- NOTE | 2023-09-26 09:25 | ED_ITS ---
Discharge Plan Disposition Patient Disposition: Home, Self-Care Condition: Good Prescriptions Prescriptions: New doxycycline hyclate 100 mg capsule 100 mg PO BID 7 Days Qty: 14 0RF guaifenesin [Mucinex] 600 mg tablet extended release 12hr 600 mg PO BID PRN (Reason: cough) Qty: 20 0RF prednisone 20 mg tablet 20 mg PO BID 5 Days Qty: 10 0RF No Action aspirin [Adult Low Dose Aspirin] 81 mg tablet,delayed release (DR/EC) 81 mg PO DAILY albuterol sulfate 90 mcg/actuation HFA aerosol inhaler 2 inh inhalation Q6H PRN (Reason: shortness of breath or wheezing) 90 Days Qty: 8.5 3RF budesonide-formoterol [Breyna] 160-4.5 mcg/actuation HFA aerosol inhaler See Rx Instructions .ROUTE .COMPLEX Qty: 33 0RF Dose Instruction: Inhale 2 puffs by mouth twice daily Rx Instructions: Inhale 2 puffs by mouth twice daily fluoxetine 10 mg capsule See Rx Instructions .ROUTE .COMPLEX Qty: 60 0RF Dose Instruction: Take 2 capsules by mouth once daily Rx Instructions: Take 2 capsules by mouth once daily diclofenac sodium 75 mg tablet,delayed release (DR/EC) 75 mg PO BID Patient Comments: TAKE 1 TABLET BY MOUTH TWICE DAILY, DO NOT CRUSH, CHEW, OR SPLIT fluticasone propionate [Flonase Allergy Relief] 50 mcg/actuation spray,suspension 2 spray intranasal DAILY Rx Instructions: administer into each nostril Referrals Follow up/Referrals: Jameel Talavera APRN [Primary Care Provider] - See instructions Activity Restrictions/Add. Instructions Additional Instructions/Restrictions: *Monitor Temp, Over the counter Motrin or Tylenol as directed/as needed Tylenol every 4 hours and Motrin every 6 hours (as long as your family doctor has told you that you can take it) for fever or pain. and straight to ER if unable to lower temp less than 101.0 after medication given *Warm salt water gargles may help to soothe the throat *Throat Lozenges? *Warm fluids like tea with honey may help to soothe the throat? *Sleep elevated *Humidifier/Vaporizer Follow up IMMEDIATELY for new or worsening symptoms or no Noticeable improvement over the next 48-72 hours. 911 for difficulty breathing or swallowin g Clinical Impressions Clinical Impression: Sinusitis Stand Alone Forms Stand Alone Forms: Work/School Release Instructions Patient Instructions: DI for Sinusitis, Sinusitis Discharge ED Provider: Zari Negron [facility] [place] General Stated complaint: congestion, headache, fever, body aches Mode of Arrival: Ambulatory Source of Information: Patient Limitations: No Limitations Time Seen by Provider: 09/26/23 09:25 Description of Symptoms (Recalled from Triage Doc. by RN): Pt's symptoms are DARBY, body aches, fever, sinus congestion, and productive cough. HEENT Symptoms (Recalled from RN notes): Yes Resp Symptoms (Recalled from RN notes): No Skin Symptoms (Recalled from RN notes): No MS Symptoms (Recalled from RN notes): No Functional Status (Recalled from RN notes): n/a History of Present Illness Provider Complaint: Patient states that she hasnt felt well since the weekend States her PCP give her a zpack and while she was taking it she felt better but after finishing it the symptoms came back States that she is having sinus congestion and pressure, drainage in the back of her throat, and at time coughing up the mucous States it worse when she is laying down States today she was feeling worse so she came in to get checked Related Data Home Medications Medication Instructions Recorded Confirmed aspirin 81 mg tablet,delayed 81 mg PO DAILY Blood thinner 12/05/18 09/26/23 release (Adult Low Dose Aspirin) diclofenac sodium 75 mg 75 mg PO BID Pain 09/18/22 09/26/23 tablet,delayed release fluticasone propionate 50 2 spray intranasal DAILY ALLERGIES 09/18/22 09/26/23 mcg/actuation nasal spray,suspension (Flonase Allergy Relief) Previous Rx's Medication Instructions Recorded albuterol sulfate 90 mcg/actuation 2 inh inhalation Q6H PRN shortness 03/24/22 aerosol inhaler of breath or wheezing 90 days #8.5 grams budesonide-formoterol HFA 160 See Rx Instructions .Route 08/07/23 mcg-4.5 mcg/actuation aerosol .COMPLEX #33 grams inhaler (Breyna) fluoxetine 10 mg capsule See Rx Instructions .Route 09/14/23 .COMPLEX #60 caps doxycycline hyclate 100 mg capsule 100 mg PO BID 7 days #14 caps 09/26/23 guaifenesin 600 mg tablet, 600 mg PO BID PRN cough #20 tabs 09/26/23 extended release 12 hr (Mucinex) prednisone 20 mg tablet 20 mg PO BID 5 days #10 tabs 09/26/23 Allergies Allergy/AdvReac Type Severity Reaction Status Date / Time cefotaxime [From CLAFORAN] Allergy Mild Verified 09/26/23 09:24 atorvastatin AdvReac Intermediate myalgia Verified 09/26/23 09:24 rosuvastatin AdvReac muscle Verified 09/26/23 09:24 cramps Worker's Comp Is this a Worker's Comp case?: No [facility] [place] Disclaimer: The information contained in this section may have been updated after the patient was seen, as this information can be updated by other users. Medical History Asthma Shortness of Breath Dyspnea on exertion Allergic rhinitis Stopped smoking with greater than 20 pack year history History of deviated nasal septum HLD (hyperlipidemia) GERD (gastroesophageal reflux disease) Dyspnea Angina, class IV Abnormal stress test Surgical History History of cardiac cath History of colonoscopy History of tonsillectomy History of neck surgery Family History Mother Cancer breast Acute Crohn's disease Social History Smoking Status: Former smoker alcohol intake: never substance use type: denies use current occupational status: unemployed Travel in the last 8 weeks: Inside the [place] household members: spouse housing: house current occupational exposures/hazards: No caffeine: Yes ROS Obtained: Yes All systems reviewed & no additional complaints except as documented and Yes Systems reviewed as appropriate & no additional complaints except as documented Constitutional Constitutional: Reports system reviewed and no additional complaints, except as documented, Reports as per HPI, Reports body ache, Reports fever(s) and Reports headache(s) ENT Ears, Nose, Mouth, and Throat: Reports system reviewed and no additional complaints, except as documented, Reports as per HPI, Reports headache(s), Reports sinus pain and Reports sinus pressure Cardiovascular Cardiovascular: Reports system reviewed and no additional complaints, except as documented and Reports as per HPI Respiratory Respiratory: Reports system reviewed and no additional complaints, except as documented, Reports as per HPI, Denies shortness of breath, Reports chest congestion and Reports cough Gastrointestinal Gastrointestingal: Reports system reviewed and no additional complaints, except as documented and as per HPI Neurologic Neurologic: Reports headache(s) Physical Exam General General appearance: alert and in no apparent distress ENT ENT exam: Present mucous membranes moist Expanded ENT Exam Nose exam: Present sinus tenderness Throat exam: Present other (PND noted ) Respiratory Respiratory exam: Present normal lung sounds bilaterally; Absent respiratory distress or wheezes Cardiovascular Cardiovascular exam: Present regular rate, normal rhythm and normal heart sounds Neurological Exam Neurological exam: Present alert, oriented X3 and normal gait Medical Decision Making Saurav Inquiry Pt receiving controlled substance: No Saurav was queried for this patient: No Vital Signs: 09/26/23 09:10 Temperature 98.6 F Temperature Source Oral Pulse Rate [Right Radial] 73 Respiratory Rate 18 Blood Pressure [Right Arm] 133/74 Blood Pressure Mean [Right Arm] 93 Blood Pressure Source [Right Arm] Automatic Cuff Blood Pressure Position [Right Arm] Sitting 02 Sat by Pulse Oximetry 98 Oxygen Delivery Method Room Air Lab Data Lab results reviewed: Yes I reviewed the patient's lab results. Lab Results 09/26/23 09:11: Influenza Type A Ag Negative, Influenza Type B Ag Negative Medical Decision Narrative: Patient states that she has taken doxy and prednsione in the past without complications or reactions
[2023-09-26 09:49] VITALS: BP 133/73; PULSE 73; RESP 18; TEMP 37; O2SAT 98
== END 2023-09-26 09:49 | disposition home or self-care (01) ==
PROVIDERS: Emergency Provider Nurse Practitioner; PCP Nurse Practitioner Family
DX: J01.90 Acute sinusitis, unspecified (principal); R51.9 Headache, unspecified; R50.9 Fever, unspecified; R09.82 Postnasal drip; R09.81 Nasal congestion; K21.9 Gastro-esophageal reflux disease without esophagitis; E78.5 Hyperlipidemia, unspecified; Z87.891 Personal history of nicotine dependence
CPT/HCPCS: 87804; 99204; 99212; G0463

== ENCOUNTER 2024-11-04 12:44 | Outpatient (CLI) | payer BC, SELFPAY ==
--- OUTSIDE RECORDS SUMMARY | 2024-11-04 12:46 | XMS_ITS | Data Portability ---
Author Organization [facility] GARCIA AyalaS [place] Address [address] [facility] [address] [address] [place] [address] Care Team Providers Care Windlasser Name Role Phone FAVIAN EMERSON Referring Provider [phone] Assessment No assessment recorded. Plan of Treatment Reminders Order Date Submit Date Provider Last Modified By Organization Details Last Modified Time Details Appointments None recorded. Lab hepatitis (A+B+C) panel, serum 2021 022 [facility], [address] [place] [address], [id number], 2 10:08:52 TSH, serum or plasma 2021 022 [facility], [address] [place] [address], [address], 2 10:06:01 lyme disease igg+igm, serum, reflex western blot 2021 022 [facility], [address] [place] [address], [address], 2 15:20:12 CBC w/ auto diff 2021 022 [facility], [address] [place] [address], [id number], 2 09:24:24 CMP, serum or plasma 2021 022 [facility], [address] [place] [address], [id number], 2 09:59:50 protein electrophor esis panel, serum or plasma 2021 022 [facility], [address] [place] [address], [address], 14:10:49 immunofixat ion, serum 2021 [facility], [address] [place] [address], [address], 15:25:33 Mycobacteri um tuberculosi s stimulated gamma interferon, qual, blood 2021 022 [facility], [address] [place] [address], [address], 15:51:29 Referral infectious disease specialist referral 2021 022 [email or web address] Ronnell Mast MD, [address] [facility], [address], [place], [address], 2 09:04:24 infectious disease specialist referral 2021 022 [email or web address] Ronenll Mast MD, [address] [facility], [address], [place], [address], 08:25:23 Procedures None recorded. Surgeries None recorded. Imaging unlisted imaging order - CT chest w/ ABD w/wo/ pelvis W 2021 022 [email or web address] [facility] Radiology [facility], [address] [place] [address], [id number], 08:58:28 Medication Orders None recorded. Patient TargetsNo targets recorded. Patient InstructionsNo instructions recorded. Reason for Referral Infectious Disease Specialis t Referral for Pyrexia of unknown origin Fever unknown etiology x 4 years Referring Physician: Liam Zapata, Rheumatology, Encounter Date: 07/29/2021 Infectious Disease Specialis t Referral for Pyrexia of unknown origin FUO, negative CT C/A/P with contrast. Referring Physician: Liam Zapata, Rheumatology, Encounter Date: 08/24/2021 Results Created Date Observation Date Name Description Value Unit Range Abnormal Flag Note LastModifiedBy Organization Detail LastModifiedTime 07/29/19 22 07/29/2021 COMPL ETE BLOOD COUNT white blood cells 3.5 K/uL 3.8-10 .8 low Not Available [facility] [address] [place] [address], [address], 07/29/2021 09:24:24 07/29/19 22 07/29/2021 COMPL ETE BLOOD COUNT red blood cells 4.52 M/uL 3.80-5 .20 normal Not Available [facility] [address] [place] [address], [address], 07/29/2021 09:24:24 07/29/19 22 07/29/2021 COMPL ETE BLOOD COUNT hemoglobin 13.7 g/dL 12.0-1 6.0 normal Not Available [facility] [address] [place] [address], [address], 07/29/2021 09:24:24 07/29/19 22 07/29/2021 COMPL ETE BLOOD COUNT hematocrit 40.4 % 35.0-4 7.0 normal Not Available [facility] [address] [place] [address], [address], 07/29/2021 09:24:24 07/29/19 22 07/29/2021 COMPL ETE BLOOD COUNT MCV 89 fL 80-100 normal Not Available [facility] [address] [place] [address], [address], 07/29/2021 09:24:24 07/29/19 22 07/29/2021 COMPL ETE BLOOD COUNT MCH 30 pg 26-35 normal Not Available [facility] [address] [place] [address], [address], 07/29/2021 09:24:24 07/29/19 22 07/29/2021 COMPL ETE BLOOD COUNT MCHC 34 g/dL 32-36 normal Not Available [facility] [address] [place] [address], [address], 07/29/2021 09:24:24 07/29/19 22 07/29/2021 COMPL ETE BLOOD COUNT RDW 12.7 % 11.0-1 5.0 normal Not Available [facility] [address] [place] [address], [address], 07/29/2021 09:24:24 07/29/19 22 07/29/2021 COMPL ETE BLOOD COUNT MPV 7.5 fL 6.2-10 .5 normal Not Available [facility] [address] [place] [address], [address], 07/29/2021 09:24:24 07/29/19 22 07/29/2021 COMPL ETE BLOOD COUNT platelet count 267 K/uL 130-40 0 normal Not Available [facility] [address] [place] [address], [address], 07/29/2021 09:24:24 07/29/19 22 07/29/2021 COMPL ETE BLOOD COUNT neutrophil,a bsolute 1.7 K/uL 1.6-8. 4 normal Not Available [facility] [address] [place] [address], [address], 07/29/2021 09:24:24 07/29/19 22 07/29/2021 COMPL ETE BLOOD COUNT lymphocyte,a bsolute 1.4 K/uL 0.4-5. 1 normal Not Available [facility] [address] [place] [address], [address], 07/29/2021 09:24:24 07/29/19 22 07/29/2021 COMPL ETE BLOOD COUNT monocyte,abs olute 0.3 K/uL 0.0-1. 2 normal Not Available [facility] [address] [place] [address], [address], 07/29/2021 09:24:24 07/29/19 22 07/29/2021 COMPL ETE BLOOD COUNT eosinophil,a bsolute 0.0 K/uL 0.0-0. 8 normal Not Available [facility] [address] [place] [address], [address], 07/29/2021 09:24:24 07/29/19 22 07/29/2021 COMPL ETE BLOOD COUNT basophil,abs olute 0.0 K/uL 0.0-0. 3 normal Not Available [facility] [address] [place] [address], [address], 07/29/2021 09:24:24 07/29/19 22 07/29/2021 COMPL ETE BLOOD COUNT % neutrophils 48.5 % 42.0-7 8.0 normal Not Available [facility] [address] [place] [address], [address], 07/29/2021 09:24:24 07/29/19 22 07/29/2021 COMPL ETE BLOOD COUNT % lymphocytes 40.5 % 11.0-4 7.0 normal Not Available [facility] [address] [place] [address], [address], 07/29/2021 09:24:24 07/29/19 22 07/29/2021 COMPL ETE BLOOD COUNT % monocytes 9.5 % 0.0-11 .0 normal Not Available [facility] [address] [place] [address], [address], 07/29/2021 09:24:24 07/29/19 22 07/29/2021 COMPL ETE BLOOD COUNT % eosinophils 0.9 % 0.0-7. 0 normal Not Available [facility] [address] [place] [address], [address], 07/29/2021 09:24:24 07/29/19 22 07/29/2021 COMPL ETE BLOOD COUNT % basophils 0.6 % 0.0-3. 0 normal Not Available [facility] [address] [place] [address], [address], 07/29/2021 09:24:24 07/29/19 22 07/29/2021 COMPL ETE BLOOD COUNT nucleated red cells 0.0 % 0.0-0. 9 normal Not Available [facility] [address] [place] [address], [address], 07/29/2021 09:24:24 07/29/19 22 07/29/2021 COMPL ETE BLOOD COUNT nucleated RBCs, absolute 0.00 K/uL not estab. normal Not Available [facility] [address] [place] [address], [address], 07/29/2021 09:24:24 07/29/19 22 07/29/2021 COMP. METAB OLIC PANEL glucose 90 mg/dL 74-100 normal Not Available [facility] [address] [place] [address], [address], 07/29/2021 09:59:50 07/29/19 22 07/29/2021 COMP. METAB OLIC PANEL blood urea nitrogen 13 mg/dL 6-20 normal Not Available [facility] [address] [place] [address], [address], 07/29/2021 09:59:50 07/29/19 22 07/29/2021 COMP. METAB OLIC PANEL creatinine 0.66 mg/dL 0.50-0 .95 normal Not Available [facility] [address] [place] [address], [address], 07/29/2021 09:59:50 07/29/19 22 07/29/2021 COMP. METAB OLIC PANEL BUN/creatini ne ratio 20 (calc ) 10-20 normal Not Available [facility] [address] [place] [address], [address], 07/29/2021 09:59:50 07/29/19 22 07/29/2021 COMP. METAB OLIC PANEL sodium 142 mmol/ L 136-14 5 normal Not Available [facility] [address] [place] [address], [address], 07/29/2021 09:59:50 07/29/19 22 07/29/2021 COMP. METAB OLIC PANEL potassium 4.0 mmol/ L 3.4-5. 0 normal Not Available [facility] [address] [place] [address], [address], 07/29/2021 09:59:50 07/29/19 22 07/29/2021 COMP. METAB OLIC PANEL chloride 105 mmol/ L 98-107 normal Not Available [facility] [address] [place] [address], [address], 07/29/2021 09:59:50 07/29/19 22 07/29/2021 COMP. METAB OLIC PANEL carbon dioxide 27 mmol/ L 22-31 normal Not Available [facility] [address] [place] [address], [address], 07/29/2021 09:59:50 07/29/19 22 07/29/2021 COMP. METAB OLIC PANEL anion gap 10 (calc ) 7-25 normal Not Available [facility] [address] [place] [address], [address], 07/29/2021 09:59:50 07/29/19 22 07/29/2021 COMP. METAB OLIC PANEL calcium 9.2 mg/dL 8.6-10 .2 normal Not Available [facility] [address] [place] [address], [address], 07/29/2021 09:59:50 07/29/19 22 07/29/2021 COMP. METAB OLIC PANEL total protein 6.8 g/dL 6.4-8. 3 normal Not Available [facility] [address] [place] [address], [address], 07/29/2021 09:59:50 07/29/19 22 07/29/2021 COMP. METAB OLIC PANEL albumin 4.6 g/dL 3.5-5. 2 normal Not Available [facility] [address] [place] [address], [address], 07/29/2021 09:59:50 07/29/19 22 07/29/2021 COMP. METAB OLIC PANEL globulin 2.2 g/dL_ (calc ) 1.5-4. 5 normal Not Available [facility] [address] [place] [address], [address], 07/29/2021 09:59:50 07/29/19 22 07/29/2021 COMP. METAB OLIC PANEL albumin/glob ulin ratio 2.1 (calc ) 1.1-2. 5 normal Not Available [facility] [address] [place] [address], [address], 07/29/2021 09:59:50 07/29/19 22 07/29/2021 COMP. METAB OLIC PANEL bilirubin, total 1.0 mg/dL 0.1-1. 2 normal Not Available [facility] [address] [place] [address], [address], 07/29/2021 09:59:50 07/29/19 22 07/29/2021 COMP. METAB OLIC PANEL alkaline phosphatase 171 U/L 30-121 high Not Available [facility] [address] [place] [address], [address], 07/29/2021 09:59:50 07/29/19 22 07/29/2021 COMP. METAB OLIC PANEL AST 40 U/L 0-32 high Not Available [facility] [address] [place] [address], [address], 07/29/2021 09:59:50 07/29/19 22 07/29/2021 COMP. METAB OLIC PANEL ALT 79 U/L 0-33 high Not Available [facility] [address] [place] [address], [address], 07/29/2021 09:59:50 07/29/19 22 07/29/2021 COMP. METAB OLIC PANEL GFR 117 >= 60 normal Not Available [facility] [address] [place] [address], [address], 07/29/2021 09:59:50 07/29/19 22 07/29/2021 COMP. METAB OLIC PANEL GFR non- 101 >= 60 normal NOT E Chron ic kidne y disea se is defin ed as kidne y damag e for more than 3 month s or a GFR less than 60 mL/mi n/1.7 3 m2 for great er than 3 month s. This calcu latio n has not been valid ated in pregn ant women . For pedia tric patie nts refer to Natio balwinder Kidne y Found ation https ://alessandro corley.franky hardy.o rg/pr ofess ional s/KDO QI/gf r_cal culat orPed Not Available [facility] [address] [place] [address], [address], 07/29/2021 09:59:50 07/29/19 22 07/29/2021 TSH TSH 2.550 uIU/m L 0.270- 4.200 normal Not Available [facility] [address] [place] [address], [address], 07/29/2021 10:06:01 07/29/19 22 07/29/2021 HEPAT ITIS PANEL hepatitis B surface Ag Nonrea ctive non-re active normal Not Available [facility] [address] [place] [address], [address], 08/01/2021 15:11:21 07/29/19 22 07/29/2021 HEPAT ITIS PANEL hcab, reflex viral RNA qt Nonrea ctive non-re active normal Antib odies to HCV were not detec sarah; does not exclu de the possi bilit y of expos ure to HCV. Not Available [facility] [address] [place] [address], [address], 08/01/2021 15:11:21 07/29/19 22 08/01/2021 HEPAT ITIS PANEL hepatitis A Ab, IgM NON-RE ACTIVE non-re active normal For addit ional infor noelle chavis e refer to http: //[facility] karen kirklandque stdia gnost ics.c om/fa q/FAQ (This link is being provi ded for infor deysi britt/ educa olivia l purpo ses only. ) TEST PERFO RMED AT: [facility] [address] [place] [address] ANNITA Murillo MD Not Available [facility] [address] [place] [address], [address], 08/01/2021 15:11:21 07/29/19 22 08/01/2021 HEPAT ITIS PANEL hepatitis B core Ab,IgM NON-RE ACTIVE non-re active normal TEST PERFO RMED AT: [facility] [address] [facility] [place] [address] ANNITA Murillo MD Not Available [facility] [address] [place] [address], [address], 08/01/2021 15:11:21 07/29/19 22 07/30/2021 PROTE IN ELECT ROPHO RESIS , SERUM protein, total 6.8 g/dL 6.1-8. 1 normal TEST PERFO RMED AT: [facility] [address] [place] [address] ANNITA Murillo MD Not Available [facility] [address] [place] [address], [address], 08/01/2021 16:46:15 07/29/19 22 08/01/2021 PROTE IN ELECT ROPHO RESIS , SERUM albumin 4.3 g/dL 3.8-4. 8 normal Not Available [facility] [address] [place] [address], [address], 08/01/2021 16:46:15 07/29/19 22 08/01/2021 PROTE IN ELECT ROPHO RESIS , SERUM typmn-2-ucry ulin 0.3 g/dL 0.2-0. 3 normal Not Available [facility] [address] [place], [address], 08/01/2021 16:46:15 07/29/19 22 08/01/2021 PROTE IN ELECT ROPHO RESIS , SERUM lyfrv-0-bijm ulin 0.7 g/dL 0.5-0. 9 normal Not Available [facility] [address] [place], [address], 08/01/2021 16:46:15 07/29/19 22 08/01/2021 PROTE IN ELECT ROPHO RESIS , SERUM beta 1 globulin 0.4 g/dL 0.4-0. 6 normal Not Available [facility] [address] [place], [address], 08/01/2021 16:46:15 07/29/19 22 08/01/2021 PROTE IN ELECT ROPHO RESIS , SERUM beta 2 globulin 0.3 g/dL 0.2-0. 5 normal Not Available [facility] [address] [place], [address], 08/01/2021 16:46:15 07/29/19 22 08/01/2021 PROTE IN ELECT ROPHO RESIS , SERUM gamma globulin 0.8 g/dL 0.8-1. 7 normal Not Available [facility] [address] [place], [address], 08/01/2021 16:46:15 07/29/19 22 08/01/2021 PROTE IN ELECT ROPHO RESIS , SERUM interpretati on SEE BELOW normal Prote in elect ropho resis alcides cruz TEST PERFO RMED AT: [facility] [place] [address] [place] [address] ANNITA Murillo MD Not Available [facility] [place], [address], 08/01/2021 16:46:15 07/29/19 22 07/30/2021 LYME AB SCR, REFLE X WB lyme Ab screen <0.90 index normal Index Inter preta tion ----- ----- ----- ---- < 0.90 Negat thomas 0.90- 1.09 Equiv ocal > 1.09 Posit thomas As recom zachary d by the Food and Drug Admin istra tion (FDA) , all sampl es with posit thomas or equiv ocal resul ts in a Borre santi burgd orfer i antib shayne scree n will be teste d using a blot metho d. Posit thomas or equiv ocal scree aparna test resul ts shoul d not be inter prete d as truly posit thomas until verif ied as such using a suppl ement al assay (e.g. , B. burgd orfer i blot) . The scree aparna test and/o r blot for B. burgd orfer i antib odies may be false ly negat thomas in early stage s of Lyme disea se, inclu ding the perio d when eryth hector migra ns is appar ent. TEST PERFO RMED AT: [facility] [place] [address] [place] [address] ANNITA Murillo MD Not Available [facility] [address] [place] [address], [address], 07/30/2021 15:20:12 07/29/19 22 08/01/2021 QUANT IFERO N TB GOLD qtb gold NEGATI VE negati ve normal Negat thomas test resul t. M. tuber culos is compl ex infec tion unlik mat. Not Available [facility] [place], [address], 08/01/2021 15:51:29 07/29/19 22 08/01/2021 QUANT IFERO N TB GOLD nil 0.02 IU/mL normal Not Available [facility] [address] [place], [address], 08/01/2021 15:51:29 07/29/19 22 08/01/2021 QUANT IFERO N TB GOLD mitogen nil >10.00 IU/mL normal Not Available [facility] [address] [place], [address], 08/01/2021 15:51:29 07/29/19 22 08/01/2021 QUANT IFERO N TB GOLD TB1 nil 0.00 IU/mL normal Not Available [facility] [address] [place], [address], 08/01/2021 15:51:29 07/29/19 22 08/01/2021 QUANT IFERO N TB GOLD TB2 nil 0.00 IU/mL normal The Nil tube value refle cts the backg round inter feron gamma immun e respo nse of the patie nt's blood sampl e. This value has been subtr acted from the patie nt's displ ayed TB and Mitog en resul ts. Lower than expec sarah resul ts with the Mitog en tube preve nt false -nega tive Quant ifero n readi ngs by detec ting a patie nt with a poten tial immun e suppr essiv e condi tion and/o r subop timal pre-a nalyt ical speci men handl ing. The TB1 Antig en tube is coate d with the M. tuber culos is-sp ecifi c antig ens desig jose to elici t respo nses from TB antig en prime d CD4+ helpe r T-lym phocy sohan. The TB2 Antig en tube is coate d with the M. tuber culos is-sp ecifi c antig ens desig jose to elici t respo nses from TB antig en prime d CD4+ helpe r and CD8+ cytot oxic T-lym phocy sohan. For addit ional infor noelle chavis e refer to https ://ed ucati on.qu estdi [employer]. com/f aq/FA Q204 (This link is being provi ded for infor matio nal/ educa olivia l purpo ses only. ) TEST PERFO RMED AT: [facility] [place] [address] [place] [address] ANNITA Murillo MD Not Available [facility] [address] [place] [address], [address], 08/01/2021 15:51:29 07/29/19 22 08/02/2021 IMMUN OFIXA TION, SERUM interpretati on SEE BELOW normal No monoc lonal immun oglob ulin detec sarah. TEST PERFO RMED AT: [facility] [place] [address] [place] [address] ANNITA Murillo MD Not Available [facility] [address] [place] [address], [address], 08/02/2021 15:25:33 08/12/19 22 08/12/2021 CT, chest + abdom en + pelvi s, w/ contr ast [facility] [address] [place] [address] [employer] webb Name: [email or web address] webb : 1969 [employer] Orderi ng Provid er: ELLE ZAPATA EXAM DATE: 2021 EXAM: CT C/A/P WITH CONTRA ST [facility]IN[facility] INFORM ATION: Nausea . Shortn ess of breath . TECHNI QUE: No POC testin g for eGFR was perfor med due to absenc e of risk factor s. Multip le axial CT images of the chest, abdome n and pelvis were obtain ed after inject ion of 100 mL Optira y 320 (1 x 100 mL bottle of [facility] [address]-1 1). None was wasted and discar ded. Bowel was opacif ied with oral contra st. COMPAR JESSIE: None FINDIN GS ON CT CHEST: AIRWAY S AND LUNGS: Trache a, princi pal bronch i and major bronch ial branch es are patent and normal . Calcif ied granul omata are seen in both lungs. MEDIAS TINUM: No medias tinal lympha denopa thy. Aorta, SVC, pulmon emi arteri es, pulmon emi veins and their major branch es and tribut keturah are normal . No gross cardia c abnorm ality. PLEURA AND CHEST WALL: No pleura l effusi on or mass. No chest wall abnorm ality. FINDIN GS ON CT ABDOME N: UPPER ABDOMI NAL ORGANS : Liver, gallbl adder, spleen , pancre as, adrena ls and both kidney s are normal . BOWEL AND MESENT LISANDRA: Stomac h, small bowel and colon are normal . No mesent anthony lympha denopa thy or perito [place] free fluid. RETROP ERITON EUM: Aorta shows athero sclero tic calcif icatio ns with normal aortic calibe r. IVC and branch es are patent and normal . No retrop eriton eal lympha denopa thy. BODY WALL AND MUSCUL OSKELE JUDY STRUCT URES: Degene rative change s of the lumbar spine are noted. Anteri or abdomi nal wall is normal . FINDIN GS ON CT PELVIS : PELVIC CAVITY : Sigmoi d divert iculos is is noted withou t eviden ce of divert iculit is. Urinar y bladde r is normal . Uterus and ovarie s are normal . No pelvic or inguin al lympha denopa thy, mass or fluid. MUSCUL OSKELE JUDY STRUCT URES: Normal . COMBIN ED IMPRES ALONSO: No signif icant abnorm ality has been demons trated . No cause of nausea or shortn ess of breath has been shown. Interp reted By: Valentine Carranza MD Electr onical ly Signed By: Valentine Carranza MD on 022 3:[address] Radiology [facility] [address] [place], [address], 08/13/2021 20:05:51 Result Notes None recorded. Procedures Surgical History Date Name Laterality Status Provider Name and Address Organization Details Recorded Time tonsillectomy completed [facility] 07/29/2021 08:11:56 cardiac catheterization completed [facility] 07/29/2021 08:12:32 operation on neck completed Tonny Katie [facility] 07/29/2021 08:12:47 Imaging Results Imaging Date Name Status LastModified by Organiz ation Details LastModified Time 08/12/2021 CT, chest + abdomen + pelvis, w/ contrast completed [email or web address] [facility] Radiology [facility] [address] [place], [address], 08/13/2021 20:05:51 Procedure Notes None recorded. Medical Equipment None Reported. Allergies Allergen ID Allergen Name Allergen Category Reaction Reaction Severity Criticality Documentation Date Start Date Code Code System Note Provider Name and Address Organization Details Recorded Time Claforan medicatio n rash severe Not available 07/29/202197160 3 RxNorm Tonny perez [facility] 08:06:00 Medications Name Sig Start Date Stop Date Status Note LastModified by Organization Details LastModified Time atorvastatin 80 mg tablet Take 1 tablet every day by oral route. active Not Available Not Available No t Available nabumetone 750 mg tablet Two times a day 07/29 completed Frequ ency: bid;M edica tion Descr iptio n: nabum etone ; Dosag e:1; Route :oral ; refil ls:0 Not Available Not Available Not Available fluoxetine 10 mg tablet Take 1 tablet every day by oral route. 08/24 completed Not Available Not Available Not Available amoxicillin 500 mg tablet Take 1 tablet every 12 hours by oral route. 08/24 completed Not Available Not Available Not Available Asprin Ec Low Dose 81 mg tablet,delaye d release Take 1 tablet every day by oral route. active Not Available Not Available No t Available ClearLax active Not Available Not Avai lable Not Available Vitals Date Recorded Body weight Body mass index (BMI) Body height Heart rate Oxygen saturation Oxygen saturation in Arterial blood by Pulse oximetry Respiratory rate Systolic blood pressure Diastolic blood pressure Provider Name and Address Organization Details Last Updated DateTime 2 71878.7 8 g 23.6 kg/m2 175.26 cm 61 /min 99 % 99 % 16 /min 134 mm[Hg] 70 mm[Hg] Tonny Bumgardne r [facility] 2 08:14:53 Date Recorded Body height Body mass index (BMI) Body weight Respiratory rate Heart rate Systolic blood pressure Diastolic blood pressure Provider Name and Address Organization Details Last Updated DateTime 2 175.26 cm 23.6 kg/m2 75164.7 8 g 16 /min 70 /min 122 mm[Hg] 78 mm[Hg] Marisel holly [facility] 2 08:25:51 Social History Question Answer Notes LastModified by Organizat ion Details LastModified Time Tobacco Smoking Status Former Smoker Tonny Wilson chris [facility] 07/29/2021 08:11:38 What Is Your Level Of Alcohol Consumption? Occasional Not Often, Maybe Once Or Twice During A Holiday. Information not available 07/29/2021 What Was The Date Of Your Most Recent Tobacco Screening? 07/29/2021 Information not available 07/29/2021 Do You Use Any Illicit Or Recreational Drugs? No Information not available 07/29/2021 How Many Years Have You Smoked Tobacco? 15 Information not available 07/29/2021 Have You Recently Traveled Abroad? No Information not available 07/29/2021 Do You Or Have You Ever Used Any Other Forms Of Tobacco Or Nicotine? No Information not available 07/29/2021 Sex: Unknown Functional Status None recorded. Mental Status None recorded. Family History Relationship Description Onset Age of this Age Resolved Age Notes LastModified by Organization Details LastModified Time Unspecified Relation Diabetes mellitus [email or web address] Not available 07/03 08:09:34 Mother Malignant tumor of pharynx cbumgardner Not available 07/03 08:09:54 Mother Crohn's disease cbumgardner Not available 07/03 08:10:14 Notes:Adopted Medical History No medical history recorded. Gynecological HistoryNo gynecological history recorded. Obstetrics History GPAL:G 0 P 0 0 0 0 Past Encounters Encounter ID Performer Location Encounter Start Date Encounter Closed Date Diagnosis/Indication Diagnosis SNOMED-CT Code Diagnosis ICD10 Code Diagnosis Note [id number] LIAM ZAPATA MD [facility] [address] [place] [address] 07/29/2021 07:35:15 07/29/2021 10:09:04 Pyrexia of unknown origin 6750263 R50.9 51-year-ol d female with fever of unknown origin x4 years. Detailed YOUSUF profile recently is negative. ESR is normal. CBC shows modest leukopenia as well as modest thrombocyt openia with normal hemoglobin .Clinicall y, no evidence of a connective tissue disease process noted. In particular does not have any stigmata for vasculitis or giant cell arteritis. She has a normal ESR. Question of recurrent ear infections , but repeated ENT evaluation s failed to show any ear infections . She does have some nonpatholo gic cervical lymphadeno davey. At this time I would like her to have more detailed investigat ions including CBC, CMP, serum protein electropho resis, serum immunofixa tion, hepatitis panel, TB test along with Lyme antibody screen. On account of lymphadeno davey and some shortness of breath, I also suggested her to have a chest CT scan abdomen and pelvis with contrast to exclude any pathologic lymphadeno davey or malignancy . I would also like her to be evaluated by infectious disease. I advised her to avoid any empiric use of antibiotic pending the results of the investigat ions and infectious disease evaluation . She will turn to my office in about 4 weeks. Malaise and fatigue 2717 11660 R53.81 R53.83 Chronic malaise and fatigue for 4 years. Accompanie d with fever for 4 years. Detailed investigat ions as stated above. Thyroid function along with hepatitis panel sidelined antibody screen obtained today. [id number] LIAM ZAPATA MD [facility] [address] [place] [address] 08/24/2021 08:07:27 08/24/2021 15:47:45 Pyrexia of unknown origin 0985940 R50.9 51-year-ol d female with fever of unknown origin x4 years.For details please see my initial consultati on dated 07/29/2021. Essentiall y nonfocal examinatio n. CT scan chest abdomen and pelvis with contrast dated 08/12/2021 normal. No evidence of any mass, lesion or focus of infection found.Deta brice YOUSUF profile recently is negative.E SR is normal. CBC shows modest leukopenia , WBC 3.5 with normal differenti al. Negative TB test. Negative hepatitis panel. Negative Lyme antibody screen. Serum protein electropho resis and serum immunofixa tion normal. At this point, I would like her to see infectious disease Dr. Jorje Mast. If this evaluation remains insignific ant or negative, we can consider a consultati on with hematologi st to complete the work-up. Overall clinically she looks stable as mentioned in the HPI did not have any fever in the last 4 weeks with fairly unremarkab le exam. No indication for any prophylact ic treatment. She is comfortabl e with the discussion . She will contact my office after infectious disease evaluation . Health Concerns Section Related Observation LastModified by Organization Pari ls LastModified Time None Recorded Concern Status LastModified by Organization Details LastModified Time None Recorded Advance Directives Directive None Recorded Payers Encounter Date Sequence Insurance Name Policy Number Policy Palmer Covered Member ID Palmer Member ID Guarantor Name 07/29/2021 1 [place] [employer] ACCESS ([place]) [id number] Buck Sanchez [id number] Sav Sanchez 08/24/2021 1 [place] [employer] [employer] [place]) [id number] Buck Sanchez [id number] Sav Sanchez Notes Date Note Type Note Provider Name and Address Organization Details Recorded Time 07/29/2021 text/html 51 years old fem daniel seen today for evaluation of constellation of symptoms, to include, headaches, cold ,chills, nausea, fevers going on for the last 4 years. symptoms seems to be happening every 4 weeks.[place] to be from the ear infections, and has had numerous courses of antibiotics. I want to 3 different ENT doctors, none of them see any ear infections . Recently saw Dr. Shepard and was suggested to see me to rule out autoimmune disease. She otherwise denies any chest pain. She does have some exertional shortness of breath. She does not have any night sweats but does get chills with the fever. Does not have any rashes. Does not have headaches. Does not have blurry vision. Denies any jaw pains. Denies any temporal pains.Denies sicca symptoms.Does not have any abdominal discomfort, diarrhea or GI bleed.Denies any history of tick bites.Interestingly recent lab studies shows a white cell count of 3.5,k and a platelet count 140k both of them slightly below the normal limits. Her hemoglobin was normal.The ESR was normal at 15 mm/h. She is a non-smoker. 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 LIAM ZAPATA MD [facility] [place], [address], [facility] 07/29/2021 08:52:42 08/24/2021 text/html Ms. Sanchez is se en today as a follow-up for the evaluation of fever of unknown origin. Since last visit, I have reviewed her CT scan chest abdomen and pelvis with contrast dated 08/12/2021. No acute findings. No source of infection was found. Lab studies were rather insignificant. Since last visit she did not have any episode of fever. She has not been to the infectious disease. LIAM ZAPATA MD [address] [place], [address], [facility] 08/24/2021 13:36:20 OBGyn Episode No OBEpisode recorded.
[2024-11-04] MEDS: ALBUTEROL 0.083% 2.5 MG/3 ML NEB IH (13:09)
--- NOTE | 2024-11-04 13:09 | PC.NURSE ---
Pre and Post Spirometry completed without incident. Albuterol 0.083% given via [facility]N, per written protocol, Pt tolerated tx well.
== END 2024-11-04 23:59 | disposition home or self-care (01) ==
LOC: RT 12:45
PROVIDERS: PCP Nurse Practitioner Family; Visit Provider Internal Medicine Pulmonary Disease
DX: J44.89 Other specified chronic obstructive pulmonary disease (principal)
CPT/HCPCS: 94060